=== PATIENT | male | born 2000 | race American Indian/Alaskan Native ===

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

== ENCOUNTER 2020-11-19 00:12 | Emergency (ER) | payer OTHER ==
[2020-11-19 00:27] VITALS: BP 134/81
[2020-11-19] MEDS ORDERED: ACETAMINOPHEN 325 MG TAB PO STA (00:33)
--- NOTE | 2020-11-19 01:19 | XRay Report ---
CHEST 2 VIEWS INDICATION / CLINICAL INFORMATION: fever chills. COMPARISON: None available. FINDINGS: SUPPORT DEVICES: None. HEART / MEDIASTINUM: No significant abnormality. LUNGS / PLEURA: No significant pulmonary or pleural abnormality. No pneumothorax. ADDITIONAL FINDINGS: No significant additional findings. IMPRESSION: 1. No acute findings. Signer Name: Rick Bansal MD Signed: 11/19/2020 1:15 AM Workstation Name: [id number]
[2020-11-19] MEDS ORDERED: SODIUM CHLORIDE 0.9% 1000 ML 1,000 ML IV ONE (01:22)
[2020-11-19 01:51] LABS: Basophils % (Auto) 0.4 % (0.0-1.8); Eosinophils # (Auto) 0.1 K/mm3 (0.0-0.4); Hematocrit 49.3 % (35.5-45.6); Hemoglobin 16.6 gm/dl (11.8-15.2); Lymphocytes # (Auto) 1.1 K/mm3 (1.2-5.4); Lymphocytes % (Auto) 18.2 % (13.4-35.0); Mean Corpuscular HGB Conc 34 % (32-34); Mean Corpuscular Volume 93 fl (84-94); Monocytes # (Auto) 0.9 K/mm3 (0.0-0.8); Monocytes % (Auto) 14.5 % (0.0-7.3); Platelet Count 216 K/mm3 (140-440); Red Blood Count 5.31 M/mm3 (3.65-5.03); Red Cell Distribution Width 12.6 % (13.2-15.2)
[2020-11-19 02:14] LABS: Alanine Aminotransferase 18 units/L (7-56); Albumin 4.2 g/dL (3.9-5); BUN/Creatinine Ratio 10; Blood Urea Nitrogen 10 mg/dL (9-20); Calcium 9.2 mg/dL (8.4-10.2); Hemolysis Index 13
[2020-11-19 03:10] LABS: Bilirubin,Urine NEG (Negative); Blood,Urine NEG (Negative); Color,Urine Yellow (Yellow); Mucus,Urine 3+ /HPF; Protein,Urine <15 mg/dL mg/dL (Negative); Urobilinogen,Urine < 2.0 mg/dL (<2.0); WBC,Urine < 1.0 /HPF (0.0-6.0)
--- NOTE | 2020-11-19 03:23 | Emergency Department Report ---
- General Chief Complaint: Fever Stated Complaint: FLU LIKE SYPMTOMS Time Seen by Provider: 11/19/20 01:21 Source: patient Mode of arrival: Ambulatory Limitations: No Limitations - History of Present Illness Initial Comments: This is a 20-year-old male nontoxic, well nourished in appearance, no acute signs of distress presents to the ED with c/o of productive cough, fever, chills , body aches, rhinorrhea, nausea, nasal congestion x1 day. Patient describes productive cough as yellow mucus production. Patient denies any sick contact. Patient stated just came from [place]. Patient denies any calf pain or calf tenderness. Patient denies any chest pain, short of breath, nausea, vomiting, hemoptysis, numbness, tingling, headache or stiff neck. Patient denies any allergies significant past medical history. MD Complaint: fever, cough, rhinorrhea, nasal congestion -: days(s) Severity: mild Severity scale (0 -10): 3 Quality: aching Consistency: constant Improves With: nothing Worsens With: nothing Associated Symptoms: fever, chills, rhinorrhea, nasal congestion, cough, nausea. denies: myalgias, diaphoresis, headache, sore throat, stiff neck, chest pain, shortness of breath, abdominal pain, vomiting, diarrhea, dysuria, rash, confusion, right sweats, weight loss, epistaxis, hoarseness, ear pain Treatments Prior to Arrival: none - Related Data Previous Rx's Medication Instructions Recorded Last Taken Type Cyclobenzaprine [Flexeril] 10 mg PO TID PRN #30 tablet 09/15/18 Unknown Rx Menthol/Camphor [[place] 1 applicatio TP QID PRN #1 tube 09/15/18 Unknown Rx Ointment] Naproxen 500 mg PO BID PRN #30 tablet 09/15/18 Unknown Rx Acetaminophen [Acetaminophen 8 650 mg PO Q8H PRN #12 tablet.er 11/19/20 Unknown Rx Hour] Benzonatate [Tessalon Perles] 100 mg PO Q8HR PRN #12 capsule 11/19/20 Unknown Rx Allergies Allergy/AdvReac Type Severity Reaction Status Date / Time Pork/Porcine Containing Allergy Rash Verified 11/19/20 00:23 Products turkey Allergy Rash Verified 11/19/20 00:23 beef Allergy Rash Uncoded 11/19/20 00:23 chicken Allergy Rash Uncoded 11/19/20 00:23 ED Review of Systems ROS: Stated complaint: FLU LIKE SYPMTOMS Other details as noted in HPI Comment: All other systems reviewed and negative Constitutional: chills, fever Eyes: denies: eye pain, eye discharge, vision change ENT: congestion. denies: ear pain, throat pain Respiratory: cough. denies: shortness of breath, wheezing Cardiovascular: denies: chest pain, palpitations Endocrine: no symptoms reported Gastrointestinal: nausea. denies: abdominal pain, vomiting, diarrhea, co nstipation, hematemesis, melena, hematochezia Genitourinary: denies: urgency, dysuria Musculoskeletal: denies: back pain, joint swelling, arthralgia Skin: denies: rash, lesions Neurological: denies: headache, weakness, paresthesias Psychiatric: denies: anxiety, depression Hematological/Lymphatic: denies: easy bleeding, easy bruising ED Past Medical Hx - Past Medical History Previous Medical History?: No - Surgical History Past Surgical History?: No - Social History Smoking Status: Never Smoker Substance Use Type: None - Medications Home Medications: Home Medications Medication Instructions Recorded Confirmed Last Taken Type Cyclobenzaprine [Flexeril] 10 mg PO TID PRN #30 tablet 09/15/18 Unknown Rx Menthol/Camphor [[place] 1 applicatio TP QID PRN #1 tube 09/15/18 Unknown Rx Ointment] Naproxen 500 mg PO BID PRN #30 tablet 09/15/18 Unknown Rx Acetaminophen [Acetaminophen 8 650 mg PO Q8H PRN #12 tablet.er 11/19/20 Unknown Rx Hour] Benzonatate [Tessalon Perles] 100 mg PO Q8HR PRN #12 capsule 11/19/20 Unknown Rx ED Physical Exam - General Limitations: No Limitations General appearance: alert, in no apparent distress - Head Head exam: Present: atraumatic, normocephalic - Eye Eye exam: Present: normal appearance - ENT ENT exam: Present: normal exam, normal orophraynx - Neck Neck exam: Present: normal inspection, full ROM. Absent: tenderness, meningismus, lymphadenopathy - Respiratory Respiratory exam: Present: normal lung sounds bilaterally. Absent: respiratory distress, wheezes, rales, rhonchi, stridor, chest wall tenderness, accessory muscle use, decreased breath sounds, prolonged expiratory - Cardiovascular Cardiovascular Exam: Present: regular rate, normal rhythm, tachycardia. Absent: irregular rhythm, systolic murmur, diastolic murmur, rubs, gallop - GI/Abdominal GI/Abdominal exam: Present: soft, normal bowel sounds. Absent: distended, tenderness, guarding, rebound, rigid, diminished bowel sounds - Extremities Exam Extremities exam: Present: normal inspection, full ROM - Back Exam Back exam: Present: normal inspection, full ROM. Absent: tenderness, CVA tenderness (R), CVA tenderness (L), muscle spasm, paraspinal tenderness, vertebral tenderness, rash noted - Neurological Exam Neurological exam: Present: alert, oriented X3, normal gait - Psychiatric Psychiatric exam: Present: normal affect, normal mood - Skin Skin exam: Present: warm, dry, intact, normal color. Absent: rash ED Course Vital Signs 11/19/20 11/19/20 11/19/20 00:25 01:27 02:36 Temperature 100.6 F H Pulse Rate 123 H Respiratory 20 20 20 Rate Blood Pressure 134/81 O2 Sat by Pulse 98 97 Oximetry 11/19/20 03:25 Temperature 98.6 F Pulse Rate 88 Respiratory 16 Rate Blood Pressure O2 Sat by Pulse 100 Oximetry - Reevaluation(s) Reevaluation #1: 11/19/20 03:22 Patient is speaking in full sentences with no signs of distress noted. ED Medical Decision Making - Lab Data Result diagrams: 11/19/20 01:26 11/19/20 01:26 Lab Results 11/19/20 11/19/20 11/19/20 Range/Units 01:26 01:26 01:26 WBC 6.1 (4.5-11.0) K/mm3 RBC 5.31 H (3.65-5.03) M/mm3 Hgb 16.6 H (11.8-15.2) gm/dl Hct 49.3 H (35.5-45.6) % MCV 93 (84-94) fl MCH 31 (28-32) pg MCHC 34 (32-34) % RDW 12.6 L (13.2-15.2) % Plt Count 216 (140-440) K/mm3 Lymph % (Auto) 18.2 (13.4-35.0) % [place] % (Auto) 14.5 H (0.0-7.3) % Eos % (Auto) 2.0 (0.0-4.3) % Baso % (Auto) 0.4 (0.0-1.8) % Lymph # (Auto) 1.1 L (1.2-5.4) K/mm3 [place] # (Auto) 0.9 H (0.0-0.8) K/mm3 Eos # (Auto) 0.1 (0.0-0.4) K/mm3 Baso # (Auto) 0.0 (0.0-0.1) K/mm3 Seg Neutrophils % 64.9 (40.0-70.0) % Seg Neutrophils # 3.9 (1.8-7.7) K/mm3 Sodium 136 L (137-145) mmol/L Potassium 3.7 (3.6-5.0) mmol/L Chloride 99.3 (98-107) mmol/L Carbon Dioxide 30 (22-30) mmol/L Anion Gap 10 mmol/L BUN 10 (9-20) mg/dL Creatinine 1.0 (0.8-1.3) mg/dL Estimated GFR > 60 ml/min BUN/Creatinine Ratio 10 % Glucose 119 H (75-100) mg/dL Lactic Acid 1.80 (0.7-2.0) mmol/L Calcium 9.2 (8.4-10.2) mg/dL Total Bilirubin 0.20 (0.1-1.2) mg/dL AST 16 (5-40) units/L ALT 18 (7-56) units/L Alkaline Phosphatase 83 (35-129) units/L Total Protein 7.1 (6.3-8.2) g/dL Albumin 4.2 (3.9-5) g/dL Albumin/Globulin Ratio 1.4 % Urine Color (Yellow) Urine Turbidity (Clear) Urine pH (5.0-7.0) Ur Specific [place] (1.003-1.030) Urine Protein (Negative) mg/dL Urine Glucose (UA) (Negative) mg/dL Urine Ketones (Negative) mg/dL Urine Blood (Negative) Urine Nitrite (Negative) Urine Bilirubin (Negative) Urine Urobilinogen (<2.0) mg/dL Ur Leukocyte Esterase (Negative) Urine WBC (Auto) (0.0-6.0) /HPF Urine RBC (Auto) (0.0-6.0) /HPF Urine Mucus /HPF 11/19/20 Range/Units 02:35 WBC (4.5-11.0) K/mm3 RBC (3.65-5.03) M/mm3 Hgb (11.8-15.2) gm/dl Hct (35.5-45.6) % MCV (84-94) fl MCH (28-32) pg MCHC (32-34) % RDW (13.2-15.2) % Plt Count (140-440) K/mm3 Lymph % (Auto) (13.4-35.0) % [place] % (Auto) (0.0-7.3) % Eos % (Auto) (0.0-4.3) % Baso % (Auto) (0.0-1.8) % Lymph # (Auto) (1.2-5.4) K/mm3 [place] # (Auto) (0.0-0.8) K/mm3 Eos # (Auto) (0.0-0.4) K/mm3 Baso # (Auto) (0.0-0.1) K/mm3 Seg Neutrophils % (40.0-70.0) % Seg Neutrophils # (1.8-7.7) K/mm3 Sodium (137-145) mmol/L Potassium (3.6-5.0) mmol/L Chloride (98-107) mmol/L Carbon Dioxide (22-30) mmol/L Anion Gap mmol/L BUN (9-20) mg/dL Creatinine (0.8-1.3) mg/dL Estimated GFR ml/min BUN/Creatinine Ratio % Glucose (75-100) mg/dL Lactic Acid (0.7-2.0) mmol/L Calcium (8.4-10.2) mg/dL Total Bilirubin (0.1-1.2) mg/dL AST (5-40) units/L ALT (7-56) units/L Alkaline Phosphatase (35-129) units/L Total Protein (6.3-8.2) g/dL Albumin (3.9-5) g/dL Albumin/Globulin Ratio % Urine Color Yellow (Yellow) Urine Turbidity Clear (Clear) Urine pH 5.0 (5.0-7.0) Ur Specific [place] 1.024 (1.003-1.030) Urine Protein <15 mg/dl (Negative) mg/dL Urine Glucose (UA) Neg (Negative) mg/dL Urine Ketones Neg (Negative) mg/dL Urine Blood Neg (Negative) Urine Nitrite Neg (Negative) Urine Bilirubin Neg (Negative) Urine Urobilinogen < 2.0 (<2.0) mg/dL Ur Leukocyte Esterase Neg (Negative) Urine WBC (Auto) < 1.0 (0.0-6.0) /HPF Urine RBC (Auto) 2.0 (0.0-6.0) /HPF Urine Mucus 3+ /HPF - Radiology Data [facility] [address] [place] [address] XRay Report Signed Patient: SARAH BELLA MR#: [id number] : 2000 Acct:[id number] Age/Sex: 20 / M ADM Date: 11/19/20 Loc: ED Attending Dr: Ordering Physician: NATALIE FERMIN MD Date of Service: 11/19/20 Procedure(s): XR chest routine 2V Accession Number(s): [id number] cc: NATALIE FERMIN MD Fluoro Time In Minutes: CHEST 2 VIEWS INDICATION / CLINICAL INFORMATION: fever chills. COMPARISON: None available. FINDINGS: SUPPORT DEVICES: None. HEART / MEDIASTINUM: No significant abnormality. LUNGS / PLEURA: No significant pulmonary or pleural abnormality. No pneu mothorax. ADDITIONAL FINDINGS: No significant additional findings. IMPRESSION: 1. No acute findings. Signer Name: Rick Bansal MD Signed: 11/19/2020 1:15 AM Workstation Name: [id number] Transcribed By: TL Dictated By: Rick Bansal MD Electronically Authenticated By: Rick Bansal MD Signed Date/Time: 11/19/20114 DD/ 4 TD/TT: - Medical Decision Making This is a 20-year-old male that presents with suspected Covid. Patient is stable and was examined by me. Chest x-ray has been obtained and dictated by radiologist with normal exam. Patient is notified of x-ray results with no questions noted. Patient does meet clinical concerns of COVID-19 and patient was instructed and educated on signs and symptoms and to self quarantine and seek medical attention as soon as possible if symptoms worsen and continue. Patient was instructed to increase hydration, rest and take Tylenol for fever episodes. Patient received resuscitation in the ED. Vitals stable prior to discharge. Patient is nonfebrile and normal heart rate. Patient was instructed Follow-up with a primary care doctor in 3-5 days or if symptoms worsen and continue return to emergency room as soon as possible. At time time of discharge, the patient does not seem toxic or ill in appearance. No acute signs of distress noted. Patient agrees to discharge treatment plan of care. No further questions noted by the patient.nt. Critical care attestation.: If time is entered above; I have spent that time in minutes in the direct care of this critically ill patient, excluding procedure time. ED Disposition Clinical Impression: Suspected COVID-19 virus infection Disposition: TO HOME OR SELFCARE Is pt being admited?: No Does the pt Need Aspirin: No Condition: Stable Instructions: COVID-19 Frequently Asked Questions, COVID-19 Additional Instructions: Follow-up with a primary care doctor in 3-5 days or if symptoms worsen and continue return to emergency room as soon as possible. As educated and instructed to you must self quarantine yourself and people that you have been in close contact with similar symptoms for the next 14 days. Please see your nearest health department or primary care doctor that you are referred to for COVID testing. Increased rest, hydration, and take Tylenol as prescribed for fever episode. Prescriptions: Acetaminophen [Acetaminophen 8 Hour] 650 mg PO Q8H PRN #12 tablet.er PRN Reason: Fever >101 Benzonatate [Tessalon Perles] 100 mg PO Q8HR PRN #12 capsule PRN Reason: Cough Referrals: SILAS SANDRA MD [Primary Care Provider] - 3-5 Days BERNIE SHARPE MD [Staff Physician] - 3-5 Days Time of Disposition: 03:36
== END 2020-11-19 04:31 | disposition home or self-care (01) ==
LOC: ED 00:12
DX: J34.89 Other specified disorders of nose and nasal sinuses (principal); R05 Cough; R50.9 Fever, unspecified; R09.81 Nasal congestion; R52 Pain, unspecified; Z79.899 Other long term (current) drug therapy; Z20.822 Contact with and (suspected) exposure to COVID-19; Z91.018 Allergy to other foods
CPT/HCPCS: 36415; 71046; 80053; 81001; 82140; 85025; 87040; 96360; 99284; J7030

== ENCOUNTER 2021-03-13 07:12 | Emergency (ER) | payer OTHER ==
[2021-03-13] MEDS ORDERED: ONDANSETRON 4 MG ODT TAB PO ONE (08:13)
[2021-03-13] MEDS ORDERED: ACETAMINOPHEN 500 MG TAB PO STA (08:13)
--- NOTE | 2021-03-13 08:42 | XRay Report ---
CHEST 2 VIEWS INDICATION / CLINICAL INFORMATION: cough, fever. COMPARISON: 11/19/2020 FINDINGS: SUPPORT DEVICES: None. HEART / MEDIASTINUM: No significant abnormality. LUNGS / PLEURA: No significant pulmonary or pleural abnormality. No pneumothorax. ADDITIONAL FINDINGS: No significant additional findings. IMPRESSION: 1. No acute findings. Signer Name: Aaron Lynn MD Signed: 03/13/2021 8:38 AM Workstation Name: [id number]
[2021-03-13 08:46] LABS: Basophils % (Auto) 0.1 % (0.0-1.8); Eosinophils % (Auto) 0.1 % (0.0-4.3); Hematocrit 46.6 % (35.5-45.6); Hemoglobin 15.9 gm/dl (11.8-15.2); Lymphocytes % (Auto) 7.8 % (13.4-35.0); Mean Corpuscular HGB Conc 34 % (32-34); Mean Corpuscular Volume 91 fl (84-94); Monocytes # (Auto) 1.4 K/mm3 (0.0-0.8); Monocytes % (Auto) 10.3 % (0.0-7.3); Platelet Count 170 K/mm3 (140-440); Red Blood Count 5.14 M/mm3 (3.65-5.03); Red Cell Distribution Width 12.4 % (13.2-15.2)
[2021-03-13 09:05] LABS: Alanine Aminotransferase 22 units/L (7-56); Albumin 4.6 g/dL (3.9-5); BUN/Creatinine Ratio 8; Blood Urea Nitrogen 10 mg/dL (9-20); Calcium 9.3 mg/dL (8.4-10.2); Hemolysis Index 7
--- NOTE | 2021-03-13 09:53 | Emergency Department Report ---
<ARPIT PERRY - Last Filed: 03/15/21 06:24> ED General Adult HPI - General Chief complaint: Fever Stated complaint: CHEST PAIN Time Seen by Provider: 03/13/21 09:09 Source: patient Mode of arrival: Ambulatory Limitations: No Limitations - History of Present Illness Initial comments: 20-year-old -[place] male patient without past medical history presents with complaints of cough, body aches, headache, chills, and sore throat x2 days. He admits to a loss of taste and decreased male. He denies any known sick contacts, chest pain or shortness of breath. He does admit to one episode of vomiting and mild abdominal pain without diarrhea or urinary symptoms. Patient rates his current pain as a 6/10 in severity. He denies trying any OTC medications for his symptoms. Severity scale (0 -10): 6 - Related Data Previous Rx's Medication Instructions Recorded Last Taken Type Cyclobenzaprine [Flexeril] 10 mg PO TID PRN #30 tablet 09/15/18 Unknown Rx Menthol/Camphor [[place] 1 applicatio TP QID PRN #1 tube 09/15/18 Unknown Rx Ointment] Naproxen 500 mg PO BID PRN #30 tablet 09/15/18 Unknown Rx Acetaminophen [Acetaminophen 8 650 mg PO Q8H PRN #12 tablet.er 11/19/20 Unknown Rx Hour] Amoxicillin [Trimox CAP] 500 mg PO BID 10 Days #20 capsule 03/13/21 Unknown Rx Ibuprofen [Motrin 800 MG tab] 800 mg PO Q8HR PRN #21 tablet 03/13/21 Unknown Rx Ascorbic Acid [Vitamin C] 1,000 mg PO Q12H #60 tablet 03/16/21 Unknown Rx Azithromycin [Zithromax Z-ADI] 250 mg PO DAILY #6 tablet 03/16/21 Unknown Rx Benzonatate [Tessalon Perles] 100 mg PO Q8HR PRN #30 capsule 03/16/21 Unknown Rx Cetirizine HCl [Zyrtec 10mg tab] 10 mg PO DAILY #30 tablet 03/16/21 Unknown Rx Famotidine [Pepcid] 20 mg PO BID #30 tablet 03/16/21 Unknown Rx Ondansetron [Zofran Odt] 4 mg PO Q6HR PRN #20 tab.rapdis 03/16/21 Unknown Rx Prednisone [predniSONE 10 mg 10 mg PO .TAPER #21 tab.ds.pk 03/16/21 Unknown Rx (6-Day Pack, 21 Tabs)] Zinc [Zinc 50mg TAB] 50 mg PO DAILY #30 tablet 03/16/21 Unknown Rx Allergies Allergy/AdvReac Type Severity Reaction Status Date / Time Pork/Porcine Containing Allergy Rash Verified 11/19/20 00:23 Products turkey Allergy Rash Verified 11/19/20 00:23 beef Allergy Rash Uncoded 11/19/20 00:23 chicken Allergy Rash Uncoded 11/19/20 00:23 ED Review of Systems Constitutional: chills, malaise, weakness. denies: diaphoresis ENT: throat pain Respiratory: cough. denies: shortness of breath Cardiovascular: denies: chest pain Gastrointestinal: as per HPI Neurological: headache. denies: numbness, paresthesias, abnormal gait ED Past Medical Hx - Past Medical History Previous Medical History?: No - Surgical History Past Surgical History?: No - Social History Smoking Status: Never Smoker Substance Use Type: None - Medications Home Medications: Home Medications Medication Instructions Recorded Confirmed Last Taken Type Cyclobenzaprine [Flexeril] 10 mg PO TID PRN #30 tablet 09/15/18 Unknown Rx Menthol/Camphor [[place] 1 applicatio TP QID PRN #1 tube 09/15/18 Unknown Rx Ointment] Naproxen 500 mg PO BID PRN #30 tablet 09/15/18 Unknown Rx Acetaminophen [Acetaminophen 8 650 mg PO Q8H PRN #12 tablet.er 11/19/20 Unknown Rx Hour] Amoxicillin [Trimox CAP] 500 mg PO BID 10 Days #20 capsule 03/13/21 Unknown Rx Ibuprofen [Motrin 800 MG tab] 800 mg PO Q8HR PRN #21 tablet 03/13/21 Unknown Rx Ascorbic Acid [Vitamin C] 1,000 mg PO Q12H #60 tablet 03/16/21 Unknown Rx Azithromycin [Zithromax Z-ADI] 250 mg PO DAILY #6 tablet 03/16/21 Unknown Rx Benzonatate [Tessalon Perles] 100 mg PO Q8HR PRN #30 capsule 03/16/21 Unknown Rx Cetirizine HCl [Zyrtec 10mg tab] 10 mg PO DAILY #30 tablet 03/16/21 Unknown Rx Famotidine [Pepcid] 20 mg PO BID #30 tablet 03/16/21 Unknown Rx Ondansetron [Zofran Odt] 4 mg PO Q6HR PRN #20 tab.rapdis 03/16/21 Unknown Rx Prednisone [predniSONE 10 mg 10 mg PO .TAPER #21 tab.ds.pk 03/16/21 Unknown Rx (6-Day Pack, 21 Tabs)] Zinc [Zinc 50mg TAB] 50 mg PO DAILY #30 tablet 03/16/21 Unknown Rx ED Physical Exam - General Limitations: No Limitations General appearance: alert, in no apparent distress - Head Head exam: Present: atraumatic, normocephalic, normal inspection - Eye Eye exam: Present: normal appearance. Absent: scleral icterus - Expanded ENT Exam Expanded Throat exam: Positive: tonsillar erythema, tonsillomegaly (Mild bilateral), tonsillar exudate (Right sided) - Neck Neck exam: Present: normal inspection, full ROM. Absent: lymphadenopathy - Respiratory Respiratory exam: Present: normal lung sounds bilaterally. Absent: respiratory distress - Cardiovascular Cardiovascular Exam: Present: tachycardia (Mild) - GI/Abdominal GI/Abdominal exam: Present: soft, normal bowel sounds. Absent: distended, tenderness, guarding, rebound, rigid - Neurological Exam Neurological exam: Present: alert, oriented X3 - Psychiatric Psychiatric exam: Present: normal affect, normal mood - Skin Skin exam: Present: warm, dry, intact, normal color. Absent: rash, cyanosis, diaphoretic, ecchymosis ED Medical Decision Making - Lab Data Result diagrams: 03/13/21 08:23 03/13/21 08:23 Lab Results 03/13/21 03/13/21 03/13/21 Range/Units 08:23 08:23 09:09 WBC 13.2 H (4.5-11.0) K/mm3 RBC 5.14 H (3.65-5.03) M/mm3 Hgb 15.9 H (11.8-15.2) gm/dl Hct 46.6 H (35.5-45.6) % MCV 91 (84-94) fl MCH 31 (28-32) pg MCHC 34 (32-34) % RDW 12.4 L (13.2-15.2) % Plt Count 170 (140-440) K/mm3 Lymph % (Auto) 7.8 L (13.4-35.0) % [place] % (Auto) 10.3 H (0.0-7.3) % Eos % (Auto) 0.1 (0.0-4.3) % Baso % (Auto) 0.1 (0.0-1.8) % Lymph # (Auto) 1.0 L (1.2-5.4) K/mm3 [place] # (Auto) 1.4 H (0.0-0.8) K/mm3 Eos # (Auto) 0.0 (0.0-0.4) K/mm3 Baso # (Auto) 0.0 (0.0-0.1) K/mm3 Seg Neutrophils % 81.7 H (40.0-70.0) % Seg Neutrophils # 10.8 H (1.8-7.7) K/mm3 Sodium 137 (137-145) mmol/L Potassium 4.0 (3.6-5.0) mmol/L Chloride 98.5 (98-107) mmol/L Carbon Dioxide 29 (22-30) mmol/L Anion Gap 14 mmol/L BUN 10 (9-20) mg/dL Creatinine 1.2 (0.8-1.3) mg/dL Estimated GFR > 60 ml/min BUN/Creatinine Ratio 8 % Glucose 117 H (75-100) mg/dL Lactic Acid 0.80 (0.7-2.0) mmol/L Calcium 9.3 (8.4-10.2) mg/dL Total Bilirubin 0.50 (0.1-1.2) mg/dL AST 19 (5-40) units/L ALT 22 (7-56) units/L Alkaline Phosphatase 66 (35-129) units/L Total Protein 7.6 (6.3-8.2) g/dL Albumin 4.6 (3.9-5) g/dL Albumin/Globulin Ratio 1.5 % - Radiology Data Radiology results: report reviewed CHEST 2 VIEWS INDICATION / CLINICAL INFORMATION: cough, fever. COMPARISON: 11/19/2020 FINDINGS: SUPPORT DEVICES: None. HEART / MEDIASTINUM: No significant abnormality. LUNGS / PLEURA: No significant pulmonary or pleural abnormality. No pneumothorax. ADDITIONAL FINDINGS: No significant additional findings. IMPRESSION: 1. No acute findings. - Medical Decision Making 20-year-old -[place] male patient without past medical history presents with complaints of cough, body aches, headache, chills, and sore throat x2 days. He admits to a loss of taste and decreased male. He denies any known sick contacts, chest pain or shortness of breath. He does admit to one episode of vomiting and mild abdominal pain without diarrhea or urinary symptoms. Patient rates his current pain as a 6/10 in severity. He denies trying any OTC medications for his symptoms. Fever of 101.4 and heart rate of 107 noted upon arrival. Lung exam is clear. Patient noted to have pharyngitis on exam. Given Covid symptoms with cough, chest x-ray is performed and is negative for any acute abnormalities. Will treat for acute bacterial pharyngitis with Amoxil. Patient advised to receive COVID-19 testing within the next 24 to 48 hours and self quarantine until his results are back. He is to follow-up with his primary care provider. After ibuprofen and Tylenol he is now afebrile and nontachycardic. He states he is feeling well. Patient is stable for discharge home. Discussed signs and symptoms that should prompt immediate return to the emergency department in detail with patient who verbalizes understanding. ED Disposition Clinical Impression: Suspected COVID-19 virus infection, Pharyngitis Disposition: DC-01 TO HOME OR SELFCARE Is pt being admited?: No Condition: Good Instructions: COVID-19, Strep Throat, Adult, Prevent the Spread of COVID-19 if You Are Sick - [facility] Prescriptions: Ibuprofen [Motrin 800 MG tab] 800 mg PO Q8HR PRN #21 tablet PRN Reason: pain/fever Amoxicillin [Trimox CAP] 500 mg PO BID 10 Days #20 capsule Referrals: [facility] [Provider Group] - 3-5 Days <NATALIE FERMIN - Last Filed: 03/17/21 11:48> ED General Adult HPI - General PUI?: Yes ED Review of Systems ROS: Stated complaint: CHEST PAIN Other details as noted in HPI ED Course Vital Signs 03/13/21 03/13/21 03/13/21 07:37 08:54 10:13 Temperature 101.4 F H 99.2 F Pulse Rate 107 H 98 H Respiratory 18 16 16 Rate Blood Pressure 116/71 Blood Pressure 106/63 [Left] O2 Sat by Pulse 96 99 Oximetry ED Medical Decision Making - Lab Data Result diagrams: 03/13/21 08:23 03/13/21 08:23 Critical care attestation.: If time is entered above; I have spent that time in minutes in the direct care of this critically ill patient, excluding procedure time. ED Disposition Is pt being admited?: No Does the pt Need Aspirin: No
[2021-03-13 10:14] VITALS: BP 106/63
== END 2021-03-13 10:20 | disposition home or self-care (01) ==
LOC: ED 07:12
DX: J02.9 Acute pharyngitis, unspecified (principal); Z20.822 Contact with and (suspected) exposure to COVID-19; Z79.1 Long term (current) use of non-steroidal anti-inflammatories (NSAID); Z79.2 Long term (current) use of antibiotics; Z79.899 Other long term (current) drug therapy; Z91.018 Allergy to other foods
CPT/HCPCS: 36415; 71046; 80053; 82140; 85025; Q0162

== ENCOUNTER 2021-03-16 02:32 | Emergency (ER) | payer OTHER ==
[2021-03-16] MEDS ORDERED: ONDANSETRON 4 MG/2 ML INJ IV ONE (02:46)
[2021-03-16] MEDS ORDERED: methylPREDNISolone Sod Succinate 125 MG/2 ML INJ IV ONE (02:46)
[2021-03-16] MEDS ORDERED: ACETAMINOPHEN 500 MG TAB PO ONE (02:46)
[2021-03-16] MEDS ORDERED: SODIUM CHLORIDE 0.9% 1000 ML 1,000 ML IV ONE (02:46)
--- NOTE | 2021-03-16 04:16 | Emergency Department Report ---
ED N/V/D HPI - General Chief complaint: Nausea/Vomiting/Diarrhea Stated complaint: COVID POS/SONI/DIARRHEA Source: patient Mode of arrival: Ambulatory Limitations: No Limitations - History of Present Illness Initial comments: Patient is a 20-year-old -[place] male with no past medical history presents to the ED with complaint of acute onset persistent diffuse body aches and pains, fever and chills, persistent dry cough, nausea and vomiting, diarrhea, epigastric abdominal pain, lack of appetite and generalized weakness for the last 4 days. Patient states that he was initially evaluated in this ED 4 days ago and diagnosed with streptococcal pharyngitis and COVID-19 viral infection, and is currently on oral antibiotics and [id number] pain medications for symptomatic treatment of the viral syndrome with COVID-19. Patient states that in the last 12 hours, his symptoms have worsened and that he has not been able to keep anything down because of nausea and vomiting and diarrhea. Patient denies dizziness, syncope, loss of consciousness, headache, chest pain, shortness of breath, sore throat, back pain, dysuria, urinary frequency and urgency and testicular pain or hematuria. MD complaint: nausea, vomiting, diarrhea, abdominal pain, other (Fever, chills, persistent dry cough) -: Sudden, days(s) (4) Description of Vomiting: food contents Description of Diarrhea: water Associated Abdominal Pain: Yes (Epigastric pain) Location: epigastric Radiation: none Severity: severe Pain Scale: 7 Quality: aching, sharp Consistency: constant Improves with: none Worsens with: vomiting Context: other (Viral syndrome suspected to be COVID-19) Associated Symptoms: denies other symptoms, myalgias, cough, fever/chills, headaches, loss of appetite, malaise, nausea/vomiting, weakness. denies: chest pain, diaphoresis, rash, dysuria, shortness of breath, syncope - Related Data Previous Rx's Medication Instructions Recorded Last Taken Type Cyclobenzaprine [Flexeril] 10 mg PO TID PRN #30 tablet 09/15/18 Unknown Rx Menthol/Camphor [[place] 1 applicatio TP QID PRN #1 tube 09/15/18 Unknown Rx Ointment] Naproxen 500 mg PO BID PRN #30 tablet 09/15/18 Unknown Rx Acetaminophen [Acetaminophen 8 650 mg PO Q8H PRN #12 tablet.er 11/19/20 Unknown Rx Hour] Amoxicillin [Trimox CAP] 500 mg PO BID 10 Days #20 capsule 03/13/21 Unknown Rx Ibuprofen [Motrin 800 MG tab] 800 mg PO Q8HR PRN #21 tablet 03/13/21 Unknown Rx Ascorbic Acid [Vitamin C] 1,000 mg PO Q12H #60 tablet 03/16/21 Unknown Rx Azithromycin [Zithromax Z-ADI] 250 mg PO DAILY #6 tablet 03/16/21 Unknown Rx Benzonatate [Tessalon Perles] 100 mg PO Q8HR PRN #30 capsule 03/16/21 Unknown Rx Cetirizine HCl [Zyrtec 10mg tab] 10 mg PO DAILY #30 tablet 03/16/21 Unknown Rx Famotidine [Pepcid] 20 mg PO BID #30 tablet 03/16/21 Unknown Rx Ondansetron [Zofran Odt] 4 mg PO Q6HR PRN #20 tab.rapdis 03/16/21 Unknown Rx Prednisone [predniSONE 10 mg 10 mg PO .TAPER #21 tab.ds.pk 03/16/21 Unknown Rx (6-Day Pack, 21 Tabs)] Zinc [Zinc 50mg TAB] 50 mg PO DAILY #30 tablet 03/16/21 Unknown Rx Allergies Allergy/AdvReac Type Severity Reaction Status Date / Time Pork/Porcine Containing Allergy Rash Verified 11/19/20 00:23 Products turkey Allergy Rash Verified 11/19/20 00:23 beef Allergy Rash Uncoded 11/19/20 00:23 chicken Allergy Rash Uncoded 11/19/20 00:23 ED Review of Systems ROS: Stated complaint: COVID POS/SONI/DIARRHEA Other details as noted in HPI Constitutional: chills, fever, malaise, weakness Eyes: denies: eye pain, eye discharge, vision change ENT: throat pain, congestion. denies: ear pain Respiratory: cough. denies: shortness of breath, wheezing Cardiovascular: denies: chest pain, palpitations Endocrine: no symptoms reported Gastrointestinal: abdominal pain, nausea, vomiting, diarrhea Genitourinary: denies: urgency, dysuria Musculoskeletal: arthralgia, myalgia. denies: back pain, joint swelling Skin: denies: rash, lesions Neurological: headache. denies: weakness, paresthesias Psychiatric: denies: anxiety, depression Hematological/Lymphatic: denies: easy bleeding, easy bruising ED Past Medical Hx - Past Medical History Previous Medical History?: No - Surgical History Past Surgical History?: No - Social History Smoking Status: Never Smoker Substance Use Type: None - Medications Home Medications: Home Medications Medication Instructions Recorded Confirmed Last Taken Type Cyclobenzaprine [Flexeril] 10 mg PO TID PRN #30 tablet 09/15/18 Unknown Rx Menthol/Camphor [[place] 1 applicatio TP QID PRN #1 tube 09/15/18 Unknown Rx Ointment] Naproxen 500 mg PO BID PRN #30 tablet 09/15/18 Unknown Rx Acetaminophen [Acetaminophen 8 650 mg PO Q8H PRN #12 tablet.er 11/19/20 Unknown Rx Hour] Amoxicillin [Trimox CAP] 500 mg PO BID 10 Days #20 capsule 03/13/21 Unknown Rx Ibuprofen [Motrin 800 MG tab] 800 mg PO Q8HR PRN #21 tablet 03/13/21 Unknown Rx Ascorbic Acid [Vitamin C] 1,000 mg PO Q12H #60 tablet 03/16/21 Unknown Rx Azithromycin [Zithromax Z-ADI] 250 mg PO DAILY #6 tablet 03/16/21 Unknown Rx Benzonatate [Tessalon Perles] 100 mg PO Q8HR PRN #30 capsule 03/16/21 Unknown Rx Cetirizine HCl [Zyrtec 10mg tab] 10 mg PO DAILY #30 tablet 03/16/21 Unknown Rx Famotidine [Pepcid] 20 mg PO BID #30 tablet 03/16/21 Unknown Rx Ondansetron [Zofran Odt] 4 mg PO Q6HR PRN #20 tab.rapdis 03/16/21 Unknown Rx Prednisone [predniSONE 10 mg 10 mg PO .TAPER #21 tab.ds.pk 03/16/21 Unknown Rx (6-Day Pack, 21 Tabs)] Zinc [Zinc 50mg TAB] 50 mg PO DAILY #30 tablet 03/16/21 Unknown Rx ED Physical Exam - General Limitations: No Limitations General appearance: alert, in no apparent distress - Head Head exam: Present: atraumatic, normocephalic, normal inspection - Eye Eye exam: Present: normal appearance, PERRL, EOMI Pupils: Present: normal accommodation - ENT ENT exam: Present: normal exam, normal orophraynx, mucous membranes moist, TM's normal bilaterally, normal external ear exam - Neck Neck exam: Present: normal inspection, full ROM - Respiratory Respiratory exam: Present: normal lung sounds bilaterally. Absent: respiratory distress, wheezes, rales, rhonchi, stridor, chest wall tenderness, accessory muscle use, decreased breath sounds - Cardiovascular Cardiovascular Exam: Present: regular rate, normal rhythm, normal heart sounds. Absent: systolic murmur, diastolic murmur, rubs, gallop - GI/Abdominal GI/Abdominal exam: Present: soft, normal bowel sounds. Absent: tenderness, guarding, rebound, hyperactive bowel sounds, hypoactive bowel sounds, organomegaly - Extremities Exam Extremities exam: Present: normal inspection, full ROM, normal capillary refill - Back Exam Back exam: Present: normal inspection, full ROM. Absent: tenderness, CVA tenderness (R), CVA tenderness (L), muscle spasm, paraspinal tenderness, vertebral tenderness - Neurological Exam Neurological exam: Present: alert, oriented X3, CN II-XII intact, normal gait, reflexes normal - Psychiatric Psychiatric exam: Present: normal affect, normal mood, anxious - Skin Skin exam: Present: warm, dry, intact, normal color. Absent: rash ED Course Vital Signs 03/16/21 03/16/21 02:44 06:17 Temperature 100.5 F H 99.0 F Pulse Rate 93 H 97 H Respiratory 22 20 Rate Blood Pressure 117/63 Blood Pressure 109/63 [Right] O2 Sat by Pulse 97 96 Oximetry ED Medical Decision Making - Lab Data Result diagrams: 03/16/21 04:27 03/16/21 04:27 - Radiology Data [facility] [address] [place] [address] XRay Report Signed Patient: SARAH BELLA MR#: [id number] : 2000 Acct:[id number] Age/Sex: 20 / M ADM Date: 03/16/21 Loc: ED Attending Dr: Ordering Physician: OBINNA MORILLO Date of Service: 03/16/21 Procedure(s): XR chest 1V ap Accession Number(s): [id number] cc: OBINNA MORILLO Fluoro Time In Minutes: CHEST 1 VIEW 03/16/2021 4:18 AM INDICATION / CLINICAL INFORMATION: fever, cough. COMPARISON: None available. FINDINGS: SUPPORT DEVICES: None. HEART / MEDIASTINUM: No significant abnormality. LUNGS / PLEURA: There is minimal patchy airspace opacity in the lower lung zones. No pneumothorax. ADDITIONAL FINDINGS: No significant additional findings. IMPRESSION: 1. There is minimal patchy airspace opacity in the lower lung zones which could represent atelectasis or evolving pneumonia Signer Name: Jorje Kan MD Signed: 03/16/2021 5:32 AM Workstation Name: [id number] Transcribed By: SS Dictated By: Jorje Kan MD Electronically Authenticated By: Jorje Kan MD Signed Date/Time: 03/16/21531 DD/ 1 TD/TT: - Medical Decision Making This is a 20-year-old -[place] male with no past medical history presents to the ED with complaint of acute onset persistent diffuse body aches and pains, fever and chills, persistent dry cough, nausea and vomiting, diarrhea, epigastric abdominal pain, lack of appetite and generalized weakness for the last 4 days. Patient states that he was initially evaluated in this ED 4 days ago and diagnosed with streptococcal pharyngitis and COVID-19 viral infection, and is currently on oral antibiotics and [id number] pain medications for symptomatic treatment of the viral syndrome with COVID-19. Patient states that in the last 12 hours, his symptoms have worsened and that he has not been able to keep anything down because of nausea and vomiting and jackson rrhea. In the ED, patient is alert and oriented x3 and is not in any distress but appears to be in pain, is febrile and anxious in triage. Patient was treated in the ED for nausea and vomiting, also given normal saline 1 L IV bolus x1 as well as antiemetics and antacids. Lab test results reviewed and are all nonactionable. Chest x-ray showed minimal patchy airspace opacity in the lower lung zones which could represent atelectasis or evolving pneumonia which given the patient's history of recent diagnosis of COVID-19 viral infection, could represent pneumonia due to COVID-19 viral infection. On reevaluation, patient felt better, vital signs were reviewed and are all stable. Patient will discharge home on medications and advised to follow-up with his primary care physician once his self quarantine time is completed or return to the ED immediately if symptoms get worse. - Differential Diagnosis Pneumonia; bronchitis; URI; dehydration; COVID-19 Critical care attestation.: If time is entered above; I have spent that time in minutes in the direct care of this critically ill patient, excluding procedure time. ED Disposition Clinical Impression: Acute bronchitis due to 2019 novel coronavirus, Nausea, vomiting and diarrhea, Fever and chills, Pneumonia due to severe acute respiratory syndrome coronavirus 2 (SARS-CoV-2) Acute pharyngitis, unspecified Qualifiers: Pharyngitis/tonsillitis etiology: other specified organisms Qualified Code(s): J02.8 - Acute pharyngitis due to other specified organisms Disposition: - TO HOME OR SELFCARE Is pt being admited?: No Does the pt Need Aspirin: No Condition: Stable Instructions: COVID-19 Frequently Asked Questions, Viral Respiratory Infection, [id number]-[id number], Nausea and Vomiting, Adult, [id number], Acute Bronchitis, Adult, [id number], Pharyngitis, [id number]-aa-[id number], Diarrhea, Adult, Omyx-yl-Aycy, Prevent the Spread of COVID-19 if You Are Sick - CDC, Acute Bronchitis (ED), Bacterial Pneumonia (ED) Additional Instructions: All lab test results were reviewed and are all nonactionable. Chest x-ray shows is minimal patchy airspace opacity in the lower lung zones which could represent atelectasis or evolving pneumonia which given recent diagnosis of positive test for COVID-19 viral infection, could represent viral pneumonia due to COVID-19. Therefore take medications with food, drink plenty of fluids, self quarantine for 10 days and follow-up with your primary care physician thereafter. Return to the ED immediately if symptoms get worse. Prescriptions: Famotidine [Pepcid] 20 mg PO BID #30 tablet Prednisone [predniSONE 10 mg (6-Day Pack, 21 Tabs)] 10 mg PO .TAPER #21 tab .ds.pk Benzonatate [Tessalon Perles] 100 mg PO Q8HR PRN #30 capsule PRN Reason: Cough Ascorbic Acid [Vitamin C] 1,000 mg PO Q12H #60 tablet Zinc [Zinc 50mg TAB] 50 mg PO DAILY #30 tablet Azithromycin [Zithromax Z-ADI] 250 mg PO DAILY #6 tablet Ondansetron [Zofran Odt] 4 mg PO Q6HR PRN #20 tab.rapdis PRN Reason: Nausea Cetirizine HCl [Zyrtec 10mg tab] 10 mg PO DAILY #30 tablet Referrals: [facility] [Provider Group] - 7-10 days Forms: Work/School Release Form(ED) Time of Disposition: 04:17 Print Language: SWEDISH
--- NOTE | 2021-03-16 05:37 | XRay Report ---
CHEST 1 VIEW 03/16/2021 4:18 AM INDICATION / CLINICAL INFORMATION: fever, cough. COMPARISON: None available. FINDINGS: SUPPORT DEVICES: None. HEART / MEDIASTINUM: No significant abnormality. LUNGS / PLEURA: There is minimal patchy airspace opacity in the lower lung zones. No pneumothorax. ADDITIONAL FINDINGS: No significant additional findings. IMPRESSION: 1. There is minimal patchy airspace opacity in the lower lung zones which could represent atelectasis or evolving pneumonia Signer Name: Jorje Kan MD Signed: 03/16/2021 5:32 AM Workstation Name: [id number]
[2021-03-16 05:47] LABS: Basophils % (Auto) 0.2 % (0.0-1.8); Eosinophils % (Auto) 0.1 % (0.0-4.3); Hematocrit 44.6 % (35.5-45.6); Hemoglobin 15.2 gm/dl (11.8-15.2); Lymphocytes # (Auto) 0.5 K/mm3 (1.2-5.4); Lymphocytes % (Auto) 10.4 % (13.4-35.0); Mean Corpuscular HGB Conc 34 % (32-34); Mean Corpuscular Volume 92 fl (84-94); Monocytes # (Auto) 0.5 K/mm3 (0.0-0.8); Monocytes % (Auto) 11.6 % (0.0-7.3); Platelet Count 172 K/mm3 (140-440); Red Blood Count 4.85 M/mm3 (3.65-5.03); Red Cell Distribution Width 12.3 % (13.2-15.2)
[2021-03-16 06:08] LABS: Alanine Aminotransferase 16 units/L (7-56); Albumin 4.4 g/dL (3.9-5); BUN/Creatinine Ratio 10; Blood Urea Nitrogen 11 mg/dL (9-20); Calcium 8.8 mg/dL (8.4-10.2); Hemolysis Index 3
[2021-03-16 06:23] VITALS: BP 117/63
== END 2021-03-16 07:36 | disposition home or self-care (01) ==
LOC: ED 02:32
DX: U07.1 COVID-19 (principal); J12.81 Pneumonia due to SARS-associated coronavirus; J20.8 Acute bronchitis due to other specified organisms; R11.2 Nausea with vomiting, unspecified; R19.7 Diarrhea, unspecified; R50.9 Fever, unspecified; R53.81 Other malaise; R53.1 Weakness; H83.8X9 Other specified diseases of inner ear, unspecified ear; R05 Cough; R10.9 Unspecified abdominal pain; J02.9 Acute pharyngitis, unspecified; R51.9 Headache, unspecified; Z91.018 Allergy to other foods
CPT/HCPCS: 36415; 71045; 80053; 85025; 96361; 96374; 96375; 99284; J2405; J2930; J7030

== ENCOUNTER 2021-03-20 08:36 | Inpatient (IN) | payer OTHER ==
[2021-03-20] MEDS ORDERED: AZITHROMYCIN/NS 500 MG/250 ML 500 MG/250 ML BAG IV ONE (10:17)
[2021-03-20] MEDS ORDERED: ONDANSETRON 4 MG/2 ML INJ IV ONE (10:17)
[2021-03-20] MEDS ORDERED: DEXAMETHASONE 4 MG TAB PO ONE (10:17)
[2021-03-20] MEDS ORDERED: cefTRIAXone/NS 1 GM/50 ML 1 GM/50 ML BAG IV ONE (10:17)
--- NOTE | 2021-03-20 10:28 | Emergency Department Report ---
ED Shortness of Breath HPI - General Chief Complaint: Dyspnea/Respdistress Stated Complaint: SOB Time Seen by Provider: 03/20/21 10:03 Source: patient, EMS Mode of arrival: Stretcher Limitations: No Limitations - History of Present Illness Initial Comments: 20-year-old male, no past medical history, presents to ED with difficulty breathing. Patient was diagnosed with COVID-19 1 week ago. He reports fever, cough, shortness of breath, diarrhea, loss of smell and taste. Patient has been seen in this ED 2 times previously and given prescriptions for amoxicillin, Tessalon Perles, vitamin C, zinc, azithromycin, and prednisone. Patient returns today due to worsening shortness of breath. Patient has not received his COVID- 19 vaccine. MD Complaint: shortness of breath -: week(s) (1) Severity: severe Consistency: constant Improves With: rest Worsens With: exertion Context: recent URI Associated Symptoms: fever, cough - Related Data Home Oxygen Therapy: No Previous Rx's Medication Instructions Recorded Last Taken Type Cyclobenzaprine [Flexeril] 10 mg PO TID PRN #30 tablet 09/15/18 Unknown Rx Menthol/Camphor [[place] 1 applicatio TP QID PRN #1 tube 09/15/18 Unknown Rx Ointment] Naproxen 500 mg PO BID PRN #30 tablet 09/15/18 Unknown Rx Acetaminophen [Acetaminophen 8 650 mg PO Q8H PRN #12 tablet.er 11/19/20 Unknown Rx Hour] Amoxicillin [Trimox CAP] 500 mg PO BID 10 Days #20 capsule 03/13/21 Unknown Rx Ibuprofen [Motrin 800 MG tab] 800 mg PO Q8HR PRN #21 tablet 03/13/21 Unknown Rx Ascorbic Acid [Vitamin C] 1,000 mg PO Q12H #60 tablet 03/16/21 Unknown Rx Azithromycin [Zithromax Z-ADI] 250 mg PO DAILY #6 tablet 03/16/21 Unknown Rx Benzonatate [Tessalon Perles] 100 mg PO Q8HR PRN #30 capsule 03/16/21 Unknown Rx Cetirizine HCl [Zyrtec 10mg tab] 10 mg PO DAILY #30 tablet 03/16/21 Unknown Rx Famotidine [Pepcid] 20 mg PO BID #30 tablet 03/16/21 Unknown Rx Ondansetron [Zofran Odt] 4 mg PO Q6HR PRN #20 tab.rapdis 03/16/21 Unknown Rx Prednisone [predniSONE 10 mg 10 mg PO .TAPER #21 tab.ds.pk 03/16/21 Unknown Rx (6-Day Pack, 21 Tabs)] Zinc [Zinc 50mg TAB] 50 mg PO DAILY #30 tablet 03/16/21 Unknown Rx Allergies Allergy/AdvReac Type Severity Reaction Status Date / Time Pork/Porcine Containing Allergy Rash Verified 11/19/20 00:23 Products turkey Allergy Rash Verified 11/19/20 00:23 beef Allergy Rash Uncoded 11/19/20 00:23 chicken Allergy Rash Uncoded 11/19/20 00:23 ED Review of Systems ROS: Stated complaint: SOB Other details as noted in HPI Comment: All other systems reviewed and negative Constitutional: fever ENT: other (Reports loss of smell and taste) Respiratory: shortness of breath Gastrointestinal: diarrhea ED Past Medical Hx - Past Medical History Previous Medical History?: Yes Additional medical history: COVID + - Surgical History Past Surgical History?: No - Social History Smoking Status: Never Smoker Substance Use Type: None - Medications Home Medications: Home Medications Medication Instructions Recorded Confirmed Last Taken Type Cyclobenzaprine [Flexeril] 10 mg PO TID PRN #30 tablet 09/15/18 Unknown Rx Menthol/Camphor [[place] 1 applicatio TP QID PRN #1 tube 09/15/18 Unknown Rx Ointment] Naproxen 500 mg PO BID PRN #30 tablet 09/15/18 Unknown Rx Acetaminophen [Acetaminophen 8 650 mg PO Q8H PRN #12 tablet.er 11/19/20 Unknown Rx Hour] Amoxicillin [Trimox CAP] 500 mg PO BID 10 Days #20 capsule 03/13/21 Unknown Rx Ibuprofen [Motrin 800 MG tab] 800 mg PO Q8HR PRN #21 tablet 03/13/21 Unknown Rx Ascorbic Acid [Vitamin C] 1,000 mg PO Q12H #60 tablet 03/16/21 Unknown Rx Azithromycin [Zithromax Z-ADI] 250 mg PO DAILY #6 tablet 03/16/21 Unknown Rx Benzonatate [Tessalon Perles] 100 mg PO Q8HR PRN #30 capsule 03/16/21 Unknown Rx Cetirizine HCl [Zyrtec 10mg tab] 10 mg PO DAILY #30 tablet 03/16/21 Unknown Rx Famotidine [Pepcid] 20 mg PO BID #30 tablet 03/16/21 Unknown Rx Ondansetron [Zofran Odt] 4 mg PO Q6HR PRN #20 tab.rapdis 03/16/21 Unknown Rx Prednisone [predniSONE 10 mg 10 mg PO .TAPER #21 tab.ds.pk 03/16/21 Unknown Rx (6-Day Pack, 21 Tabs)] Zinc [Zinc 50mg TAB] 50 mg PO DAILY #30 tablet 03/16/21 Unknown Rx ED Physical Exam - General Limitations: No Limitations General appearance: alert - Head Head exam: Present: atraumatic, normocephalic - Eye Eye exam: Present: normal appearance - ENT ENT exam: Present: mucous membranes moist - Neck Neck exam: Present: normal inspection - Respiratory Respiratory exam: Present: respiratory distress, other (Tachypneic) - Cardiovascular Cardiovascular Exam: Present: normal rhythm, tachycardia - GI/Abdominal GI/Abdominal exam: Present: soft. Absent: distended, tenderness - Extremities Exam Extremities exam: Present: normal inspection - Neurological Exam Neurological exam: Present: alert, oriented X3 - Psychiatric Psychiatric exam: Present: normal affect, normal mood - Skin Skin exam: Present: warm, dry, intact, normal color ED Course Vital Signs 03/20/21 03/20/21 03/20/21 09:19 09:25 09:30 Temperature 103.3 F H Pulse Rate 102 H 107 H 107 H Respiratory 19 Rate Blood Pressure 112/76 Blood Pressure 112/76 [Left] O2 Sat by Pulse 98 98 Oximetry 03/20/21 03/20/21 03/20/21 10:08 10:40 11:20 Temperature Pulse Rate 115 H 100 H Respiratory 32 H 19 Rate Blood Pressure Blood Pressure 113/70 108/66 [Left] O2 Sat by Pulse 92 99 97 Oximetry 03/20/21 03/20/21 03/20/21 11:26 11:28 12:44 Temperature 100.6 F H Pulse Rate 110 H Respiratory 22 Rate Blood Pressure Blood Pressure 121/63 [Left] O2 Sat by Pulse 88 98 97 Oximetry 03/20/21 13:50 Temperature Pulse Rate 85 Respiratory 20 Rate Blood Pressure Blood Pressure 96/50 [Left] O2 Sat by Pulse 100 Oximetry ED Medical Decision Making - Lab Data Result diagrams: 03/20/21 10:31 03/20/21 10:31 - EKG Data -: EKG Interpreted by Me EKG shows normal: sinus rhythm, axis, intervals, QRS complexes, ST-T waves Rate: normal - EKG Data Interpretation: no acute changes - Radiology Data Radiology results: report reviewed, image reviewed - Medical Decision Making 20-year-old male, Covid positive, presents to ED with difficulty breathing. Patient is hypoxic, tachypneic. He was placed on high flow nasal cannula. Chest x-ray shows Covid pneumonia. Blood cultures drawn, patient given Ro cephin, azithromycin, and Decadron. Patient will be admitted by hospitalist, Dr. Evans, for further management. - Differential Diagnosis Pneumonia Critical Care Time: Yes Critical care time in (mins) excluding proc time.: 35 Critical care attestation.: If time is entered above; I have spent that time in minutes in the direct care of this critically ill patient, excluding procedure time. Critical Care Time: 35 min ED Disposition Clinical Impression: Pneumonia, Acute respiratory failure with hypoxia, COVID-19 Sepsis Qualifiers: Acute respiratory failure type: with hypoxia Disposition: OP ADMIT IP TO THIS HOSP Is pt being admited?: Yes Condition: Stable Time of Disposition: 11:27
[2021-03-20] MEDS ORDERED: ACETAMINOPHEN 500 MG TAB PO ONE (10:31)
[2021-03-20 10:49] LABS: Basophils % (Auto) 0.3 % (0.0-1.8); Hematocrit 43.1 % (35.5-45.6); Hemoglobin 14.6 gm/dl (11.8-15.2); Lymphocytes # (Auto) 0.6 K/mm3 (1.2-5.4); Lymphocytes % (Auto) 4.6 % (13.4-35.0); Mean Corpuscular HGB Conc 34 % (32-34); Mean Corpuscular Volume 90 fl (84-94); Monocytes # (Auto) 0.6 K/mm3 (0.0-0.8); Monocytes % (Auto) 5.1 % (0.0-7.3); Platelet Count 250 K/mm3 (140-440); Red Blood Count 4.77 M/mm3 (3.65-5.03); Red Cell Distribution Width 12.3 % (13.2-15.2)
[2021-03-20 11:01] LABS: BUN/Creatinine Ratio 19; Blood Urea Nitrogen 17 mg/dL (9-20); Calcium 8.8 mg/dL (8.4-10.2); Hemolysis Index 2
--- NOTE | 2021-03-20 11:27 | History and Physical Report ---
History of Present Illness Chief complaint: My breathing is worse History of present illness: 20 YO Male with Coronavirus Infection diagnosed 1 week ago, who failed outpatient therapy, presents to ED for evaluation. Patient reports "my breathing is worse". Patient states that he has experienced body aches, fever, dry cough, dyspnea on exertion, dyspnea at rest, shortness of breath, loss of sense of smell, loss of sense of taste. Patient represents to ED for evaluation of the aforementioned symptoms. EMS was notified and upon arrival the patient was found to be in respiratory distress and was placed on supplemental oxygen and transported to [facility] for further care and evaluation of the aforementioned symptoms. The patient was seen and evaluated in the emergency department. All lab and imaging studies reviewed. The patient was found to have a temperature of 103.3 F, a respiratory rate in the 40s, a pulse oximetry of 87% on room air at rest which is consistent with acute hypoxemic respiratory failure. Patient underwent chest x-ray and was found to have bilateral pneumonia, as well as sepsis suspected secondary to coronavirus infection. Patient admitted to medical floor and initiated on sepsis protocol as well as coronavirus protocol. Patient also placed on high flow supplemental oxygen with mild improvement in symptoms. Patient is unable to speak in complete sentences, is using accessory muscles to breathe, tripoding. Patient uses head gestures to deny chills, chest pain, palpitation, skin rash, unilateral leg swelling, calf pain, prolonged travel/immobility, individual/family history of DVT/PE/bleeding/blood clotting disorders. No prior admission for review. No medication listed at time of admission for reconciliation. Past History Past Medical History: other (See HPI) Past Surgical History: No surgical history, Other (Reviewed) Social history: single. denies: smoking, alcohol abuse, prescription drug abuse Family history: hypertension Medications and Allergies Allergies Allergy/AdvReac Type Severity Reaction Status Date / Time Pork/Porcine Containing Allergy Rash Verified 11/19/20 00:23 Products turkey Allergy Rash Verified 11/19/20 00:23 beef Allergy Rash Uncoded 11/19/20 00:23 chicken Allergy Rash Uncoded 11/19/20 00:23 Home Medications Medication Instructions Recorded Confirmed Last Taken Type Cyclobenzaprine [Flexeril] 10 mg PO TID PRN #30 tablet 09/15/18 Unknown Rx Menthol/Camphor [[place] 1 applicatio TP QID PRN #1 tube 09/15/18 Unknown Rx Ointment] Naproxen 500 mg PO BID PRN #30 tablet 09/15/18 Unknown Rx Acetaminophen [Acetaminophen 8 650 mg PO Q8H PRN #12 tablet.er 11/19/20 Unknown Rx Hour] Amoxicillin [Trimox CAP] 500 mg PO BID 10 Days #20 capsule 03/13/21 Unknown Rx Ibuprofen [Motrin 800 MG tab] 800 mg PO Q8HR PRN #21 tablet 03/13/21 Unknown Rx Ascorbic Acid [Vitamin C] 1,000 mg PO Q12H #60 tablet 03/16/21 Unknown Rx Azithromycin [Zithromax Z-ADI] 250 mg PO DAILY #6 tablet 03/16/21 Unknown Rx Benzonatate [Tessalon Perles] 100 mg PO Q8HR PRN #30 capsule 03/16/21 Unknown Rx Cetirizine HCl [Zyrtec 10mg tab] 10 mg PO DAILY #30 tablet 03/16/21 Unknown Rx Famotidine [Pepcid] 20 mg PO BID #30 tablet 03/16/21 Unknown Rx Ondansetron [Zofran Odt] 4 mg PO Q6HR PRN #20 tab.rapdis 03/16/21 Unknown Rx Prednisone [predniSONE 10 mg 10 mg PO .TAPER #21 tab.ds.pk 03/16/21 Unknown Rx (6-Day Pack, 21 Tabs)] Zinc [Zinc 50mg TAB] 50 mg PO DAILY #30 tablet 03/16/21 Unknown Rx Review of Systems Constitutional: fever, weakness, malaise Ears, nose, mouth and throat: other (Loss of sense of smell, loss of sense of taste), no ear pain, no ear discharge, no tinnitis, no nose pain, no nasal congestion Cardiovascular: no chest pain, no orthopnea, no palpitations, no rapid/irregular heart beat Respiratory: cough, cough with sputum, shortness of breath, dyspnea on exertion, no hemoptysis, no pain on inspiration Gastrointestinal: no nausea, no vomiting, no diarrhea, no constipation Genitourinary Male: no hematuria, no flank pain, no discharge, no urinary frequency, no urinary hesitancy Rectal: no pain, no incontinence, no bleeding Musculoskeletal: no neck stiffness, no neck pain, no shooting arm pain, no arm numbness/tingling, no low back pain Integumentary: no rash, no pruritis, no redness, no sores, no wounds Neurological: no transient paralysis, no paralysis, no weakness, no parathesias, no numbness Psychiatric: no memory loss, no change in sleep habits, no sleep disturbances, no insomnia, no hypersomnia, no change in appetite Endocrine: no cold intolerance, no heat intolerance, no excessive thirst, no polydipsia, no polyuria Hematologic/Lymphatic: no easy bruising, no easy bleeding, no lymphedema Allergic/Immunologic: no urticaria, no allergic rhinitis, no persistent infections Exam - Constitutional Vitals: Temp Pulse Resp BP Pulse Ox 103.3 F H 100 H 19 108/66 97 03/20/21 09:19 03/20/21 11:20 03/20/21 11:20 03/20/21 11:20 03/20/21 11:20 General appearance: Present: mild distress - EENT Eyes: Present: PERRL ENT: hearing intact, clear oral mucosa - Neck Neck: Present: supple, normal ROM - Respiratory Respiratory effort: labored, pursed lips, accessory muscle use, stridor, other (Tachypnea) Respiratory: bilateral: diminished, rhonchi - Cardiovascular Rhythm: other (Tachycardia) Heart Sounds: Present: S1 & S2. Absent: rub, click - Extremities Extremities: pulses symmetrical, No edema Peripheral Pulses: within normal limits - Abdominal General gastrointestinal: Present: soft, non-tender, non-distended, normal bowel sounds Male genitourinary: Present: normal - Integumentary Integumentary: Present: clear, warm, dry - Musculoskeletal Musculoskeletal: gait normal, strength equal bilaterally - Psychiatric Psychiatric: appropriate mood/affect, intact judgment & insight - Neurologic Neurologic: CNII-XII intact, moves all extremities Results - Labs CBC & Chem 7: 03/20/21 10:31 03/20/21 10:31 Labs: Abnormal lab results 03/20/21 Range/Units 10:31 WBC 12.0 H (4.5-11.0) K/mm3 RDW 12.3 L (13.2-15.2) % Lymph % (Auto) 4.6 L (13.4-35.0) % Lymph # (Auto) 0.6 L (1.2-5.4) K/mm3 Seg Neutrophils % 90.0 H (40.0-70.0) % Seg Neutrophils # 10.8 H (1.8-7.7) K/mm3 Assessment and Plan - Patient Problems (1) Sepsis Current Visit: Yes Status: Acute Qualifiers: Acute respiratory failure type: with hypoxia Plan to address problem: Sepsis protocol: Chest x-ray, CBC, CMP, serial lactic acid level, IV antibiotic therapy, IV fluid resuscitation therapy, maintain mean arterial pressure greater than or equal 65, (2) Acute respiratory failure with hypoxia Current Visit: Yes Status: Acute Plan to address problem: Chest x-ray, supplemental oxygen, pulse oximetry, high flow supplemental oxygen. Will consider noninvasive positive pressure ventilation as clinically indicated. (3) COVID-19 Current Visit: Yes Status: Acute Plan to address problem: Coronavirus protocol: IV steroid therapy, IV antibiotic therapy, high flow supplemental oxygen, pulse oximetry, nebulizer therapy, vitamin C therapy, vitamin D therapy, zinc therapy, prophylactic anticoagulation (4) Pneumonia Current Visit: Yes Status: Acute Plan to address problem: Pneumonia protocol: Chest x-ray, CBC, supplemental oxygen, pulse oximetry, nebulizer therapy, IV antibiotic therapy, blood culture. (5) DVT prophylaxis Current Visit: Yes Status: Acute Plan to address problem: SCD to bilateral lower extremities while in bed, prophylactic anticoagulation.
[2021-03-20] MEDS ORDERED: ACETAMINOPHEN 325 MG TAB PO PRN ×2 (11:28)
[2021-03-20] MEDS ORDERED: HYDROmorphone 1 MG/1 ML INJ IV PRN ×2 (11:28)
[2021-03-20] MEDS ORDERED: oxyCODONE /ACETAMINOPHEN 5-325MG TAB PO PRN (11:28)
[2021-03-20] MEDS ORDERED: SODIUM CHLORIDE 0.9% 1000 ML IV SOLN IV ONE (11:28)
[2021-03-20] MEDS ORDERED: ALBUTEROL 2.5 MG/3 ML NEBU IH PRN (11:28)
--- NOTE | 2021-03-20 11:31 | XRay Report ---
CHEST 1 VIEW 03/20/2021 11:22 AM INDICATION / CLINICAL INFORMATION: sob, COVID +. COMPARISON: 03/16/2021. FINDINGS: SUPPORT DEVICES: None. HEART / MEDIASTINUM: No significant abnormality. LUNGS / PLEURA: Patchy infiltrate at the mid/lower zones right greater than left. Lung volumes are mi ldly diminished. No pneumothorax or significant pleural fluid. ADDITIONAL FINDINGS: No significant additional findings. IMPRESSION: 1. Development of bilateral pneumonia right greater than left. 2. Mild interval decrease in lung volumes. Signer Name: Ady Jarvis MD Signed: 03/20/2021 11:26 AM Workstation Name: [id number]
[2021-03-20] MEDS ORDERED: AZITHROMYCIN/NS 500 MG/250 ML 500 MG/250 ML BAG IV SCH (12:00)
[2021-03-20] MEDS: methylPREDNISolone Sod Succinate 40 MG/1 ML INJ IV SCH ×2 (13:47→21:39)
--- NOTE | 2021-03-20 17:41 | Consultation ---
History of Present Illness - Reason for Consult Consult date: 03/20/21 COVID Requesting physician: ILIR WIN - History of Present Illness 20-year-old male who tested positive for COVID-19 a week before admission, admitted on 03/20/2021 secondary to body aches, fever, dry cough, dyspnea on exertion and shortness of breath associated with loss of smell and taste for 8 days. EMS found patient hypoxic brought him to the emergency room. On arrival, temperature 103.3, HR 102, RR 22, O2 sat 98%, BP P1 12/76. Sats dropped to 88%. Patient currently on high flow nasal cannula O2 30 L. Initial WBC 12. Hemoglobin 14.6. Platelets 250. Creatinine 0.9. SARS-CoV-2 PCR positive. Blood cultures pending. Chest x-ray with bilateral patchy infiltrates. Review of Systems: positive in bold print General: fever, chills, malaise Cutaneous: rash, pruritus Head: headaches or injury Eyes: changes in vision, eye pain, double vision Ears: ear pain, ear discharge, ringing or hearing loss Nose: nose bleeding, stuffiness Mouth & throat: bleeding gums, horseness, no dental problems, or swollen glands Neck: no pain, node enlargement/lumps, tyroid enlargement or tenderness Respiratory: SOB, cough, SILVA, wheezing, sputum, hemoptysis, pleuritic chest pain Cardiovascular: chest pain, leg edema, cyanosis, SILVA, orthopnea Musculoskeletal: edema, deformities, pain Gastrointestinal: nausea, vomiting, hematemesis, diarrhea, constipation, melena, bright red blood in stools, fecal incontinence, jaundice Genitourinary/Reproductive: frequent urination, dysuria, hematuria, incontinence Neurogical: seizures, headaches, weakness, paresthesias, loss of speech or vision; memory loss, vertigo, tremors, numbness Psychiatric: stable mood; excessive anxiety, sadness or moodiness Past History Past Medical History: other (See HPI) Past Surgical History: No surgical history, Other (Reviewed) Social history: single. denies: smoking, alcohol abuse, prescription drug abuse Family history: hypertension Medications and Allergies Allergies Allergy/AdvReac Type Severity Reaction Status Date / Time Pork/Porcine Containing Allergy Rash Verified 11/19/20 00:23 Products turkey Allergy Rash Verified 11/19/20 00:23 beef Allergy Rash Uncoded 11/19/20 00:23 chicken Allergy Rash Uncoded 11/19/20 00:23 Home Medications Medication Instructions Recorded Confirmed Last Taken Type Cyclobenzaprine [Flexeril] 10 mg PO TID PRN #30 tablet 09/15/18 Unknown Rx Menthol/Camphor [[place] 1 applicatio TP QID PRN #1 tube 09/15/18 Unknown Rx Ointment] Naproxen 500 mg PO BID PRN #30 tablet 09/15/18 Unknown Rx Acetaminophen [Acetaminophen 8 650 mg PO Q8H PRN #12 tablet.er 11/19/20 Unknown Rx Hour] Amoxicillin [Trimox CAP] 500 mg PO BID 10 Days #20 capsule 03/13/21 Unknown Rx Ibuprofen [Motrin 800 MG tab] 800 mg PO Q8HR PRN #21 tablet 03/13/21 Unknown Rx Ascorbic Acid [Vitamin C] 1,000 mg PO Q12H #60 tablet 03/16/21 Unknown Rx Azithromycin [Zithromax Z-ADI] 250 mg PO DAILY #6 tablet 03/16/21 Unknown Rx Benzonatate [Tessalon Perles] 100 mg PO Q8HR PRN #30 capsule 03/16/21 Unknown Rx Cetirizine HCl [Zyrtec 10mg tab] 10 mg PO DAILY #30 tablet 03/16/21 Unknown Rx Famotidine [Pepcid] 20 mg PO BID #30 tablet 03/16/21 Unknown Rx Ondansetron [Zofran Odt] 4 mg PO Q6HR PRN #20 tab.rapdis 03/16/21 Unknown Rx Prednisone [predniSONE 10 mg 10 mg PO .TAPER #21 tab.ds.pk 03/16/21 Unknown Rx (6-Day Pack, 21 Tabs)] Zinc [Zinc 50mg TAB] 50 mg PO DAILY #30 tablet 03/16/21 Unknown Rx Active Meds: Active Medications Acetaminophen (Acetaminophen 325 Mg Tab) 650 mg PO Q4H PRN PRN Reason: Pain MILD(1-3)/Fever >100.5/HURD Albuterol (Albuterol 2.5 Mg/3 Ml Nebu) 2.5 mg IH Q4HRT PRN PRN Reason: Shortness Of Breath Ascorbic Acid (Ascorbic Acid 500 Mg Tab) 500 mg PO BID SHAAN Cholecalciferol (Cholecalciferol (Vit D3) 1000 Unit (25 Mcg) Tab) 1,000 unit PO QDAY [facility] Heparin Sodium (Porcine) (Heparin 5,000 Unit/1 Ml Vial) 5,000 unit SUB-Q Q12HR [facility] Hydromorphone HCl (Hydromorphone 1 Mg/1 Ml Inj) 0.25 mg IV Q4H PRN PRN Reason: Pain, Moderate (4-6) Hydromorphone HCl (Hydromorphone 1 Mg/1 Ml Inj) 0.5 mg IV Q12H PRN PRN Reason: Pain , Severe (7-10) Ceftriaxone Sodium (Rocephin/Ns 2 Gm/100 Ml) 2 gm in 100 mls @ 200 mls/hr IV Q24H SHAAN; Protocol Azithromycin (Zithromax/Ns) 500 mg in 250 mls @ 250 mls/hr IV Q24H SHAAN; Protocol Last Admin: 03/20/21 12:08 Dose: Not Given Documented by: Methylprednisolone Sodium Succinate (Methylprednisolone Sod Succinate 40 Mg/1 Ml Inj) 40 mg IV Q8HR [facility] Last Admin: 03/20/21 13:47 Dose: 40 mg Documented by: Ondansetron HCl (Ondansetron 4 Mg/2 Ml Inj) 4 mg IV Q8H PRN PRN Reason: Nausea And Vomiting Oxycodone/Acetaminophen (Oxycodone /Acetaminophen 5-325mg Tab) 1 tab PO Q12H PRN PRN Reason: Pain, Moderate (4-6) Sodium Chloride (Sodium Chloride 0.9% 10 Ml Flush Syringe) 10 ml IV BID [facility] Sodium Chloride (Sodium Chloride 0.9% 10 Ml Flush Syringe) 10 ml IV PRN PRN PRN Reason: LINE FLUSH Zinc Sulfate (Zinc Sulfate 220 Mg Cap) 220 mg PO BID [facility] Physical Examination - Physical Exam Narrative exam: Unable to obtain patient is out of the room. - Constitutional Vitals: Vital Signs Temp Pulse Resp BP Pulse Ox 100.6 F H 85 20 96/50 100 03/20/21 12:44 03/20/21 13:50 03/20/21 13:50 03/20/21 13:50 03/20/21 13:50 Temperature -Last 24 Hours Temperature 100.6 F Temperature 103.3 F Results - Labs CBC & Chem 7: 03/20/21 10:31 03/20/21 10:31 Labs: Abnormal lab results 03/20/21 03/20/21 Range/Units 10:31 10:35 WBC 12.0 H (4.5-11.0) K/mm3 RDW 12.3 L (13.2-15.2) % Lymph % (Auto) 4.6 L (13.4-35.0) % Lymph # (Auto) 0.6 L (1.2-5.4) K/mm3 Seg Neutrophils % 90.0 H (40.0-70.0) % Seg Neutrophils # 10.8 H (1.8-7.7) K/mm3 Coronavirus (PCR) Positive A (Negative) Assessment and Plan Cultures: Blood culture pending SARS CoV2 PCR positive Assessment: 20-year-old male who tested positive for COVID-19 a week before admission, admitted on 03/20/2021 secondary to body aches, fever, dry cough, dyspnea on exertion and shortness of breath associated with loss of smell and taste for 8 days: #Severe sepsis: Present on admission with high fever, tachycardia, hypoxia, secondary to COVID-19 infection. #Severe COVID pneumonia: Chest x-ray with bilateral patchy infiltrates. Patient is unvaccinated. Inflammatory markers are not available at this time. #Acute hypoxemic respiratory failure: O2 sat drops. Patient currently on high flow nasal cannula O2 at 30 L. Recommendations: -Pulmonary consult -Start Dexamethasone 6 mg IV/PO daily for 10 days -Start Remdesivir for 5 days (CrCl>30 mg/mL) -Patient may be a candidate for Tocilizumab if CRP is >7.5 and remains on high flow nasal cannula O2 -Monitor inflammatory markers - ferritin, Ddimer, CRP, LDH, ordered a stat -Monitor liver function test on Remdesivir -Continue anticoagulation per System Protocol -Prone positioning as possible -Okay to stop ceftriaxone and azithromycin if procalcitonin <0.25 ng/mL All laboratory, cultures and imaging were reviewed. Will follow Mara Rodríguez MD Infectious Diseases [facility] M [phone] O [phone]
[2021-03-20 18:54] LABS: Alanine Aminotransferase 15 units/L (7-56); Albumin 3.2 g/dL (3.9-5); BUN/Creatinine Ratio 19; Blood Urea Nitrogen 15 mg/dL (9-20); Calcium 8.4 mg/dL (8.4-10.2); Hemolysis Index 7
[2021-03-20 19:01] LABS: C-Reactive Protein 14.8 mg/dL (0.00-1.30)
[2021-03-20] MEDS ORDERED: REMDESIVIR 200 MG in SODIUM CHLORIDE 0.9% 250ML 250 ML IV ONE (20:00)
[2021-03-20] MEDS: SODIUM CHLORIDE 0.9% 50 ML IVPB IV SCH (21:39)
[2021-03-20] MEDS: ZINC SULFATE 220 MG CAP PO SCH (21:39)
[2021-03-20] MEDS: ASCORBIC ACID 500 MG TAB PO SCH (21:39)
[2021-03-20] MEDS ORDERED: HEPARIN 5,000 UNIT/1 ML VIAL SUB-Q SCH (22:00)
[2021-03-21] MEDS: methylPREDNISolone Sod Succinate 40 MG/1 ML INJ IV SCH (06:32)
[2021-03-21 07:38] LABS: Alanine Aminotransferase 15 units/L (7-56); Albumin 3.5 g/dL (3.9-5); Blood Urea Nitrogen 17 mg/dL (9-20); Calcium 8.9 mg/dL (8.4-10.2); Hemolysis Index 7
[2021-03-21 07:42] LABS: BUN/Creatinine Ratio 24
--- NOTE | 2021-03-21 08:18 | Progress Note ---
Assessment and Plan Assessment and plan: 20 YO Male with Coronavirus Infection diagnosed 1 week ago, who failed outpatient therapy, presents to ED for evaluation. Patient reports "my breathing is worse". Patient states that he has experienced body aches, fever, dry cough, dyspnea on exertion, dyspnea at rest, shortness of breath, loss of sense of smell, loss of sense of taste. Patient represents to ED for evaluation of the aforementioned symptoms. EMS was notified and upon arrival the patient was found to be in respiratory distress and was placed on supplemental oxygen and transported to [facility] for further care and evaluation of the aforementioned symptoms. The patient was seen and evaluated in the emergency department. All lab and imaging studies reviewed. The patient was found to have a temperature of 103.3 F, a respiratory rate in the 40s, a pulse oximetry of 87% on room air at rest which is consistent with acute hypoxemic respiratory failure. Patient underwent chest x-ray and was found to have bilateral pneumonia, as well as sepsis suspected secondary to coronavirus infection. Patient admitted to medical floor and initiated on sepsis protocol as well as coronavirus protocol. Patient also placed on high flow supplemental oxygen with mild improvement in symptoms. Patient is unable to speak in complete sentences, is using accessory muscles to breathe, tripoding. Patient uses head gestures to deny chills, chest pain, palpitation, skin rash, unilateral leg swelling, calf pain, prolonged travel/immobility, individual/family history of DVT/PE/bleeding/blood clotting disorders. No prior admission for review. No medication listed at time of admission for reconciliation. CXR: Patchy Infiltrate (1) Sepsis Current Visit: Yes Status: Acute Qualifiers: Acute respiratory failure type: with hypoxia Plan to address problem: Sepsis protocol: Chest x-ray, CBC, CMP, serial lactic acid level, IV antibiotic therapy, IV fluid resuscitation therapy, maintain mean arterial pressure greater than or equal 65, (2) Acute respiratory failure with hypoxia Current Visit: Yes Status: Acute Plan to address problem: Chest x-ray, supplemental oxygen, pulse oximetry, high flow supplemental oxygen. Will consider noninvasive positive pressure ventilation as clinically indicated. (3) COVID-19 Current Visit: Yes Status: Acute Plan to address problem: Coronavirus protocol: IV steroid therapy, IV antibiotic therapy, high flow supplemental oxygen, pulse oximetry, nebulizer therapy, vitamin C therapy, vitamin D therapy, zinc therapy, prophylactic anticoagulation (4) Pneumonia Current Visit: Yes Status: Acute Plan to address problem: Pneumonia protocol: Chest x-ray, CBC, supplemental oxygen, pulse oximetry, neb ulizer therapy, IV antibiotic therapy, blood culture. (5) DVT prophylaxis Current Visit: Yes Status: Acute Plan to address problem: SCD to bilateral lower extremities while in bed, prophylactic anticoagulation. 03/21: Continue supportive care, continues on high flow oxygen, will obtain Pulmonary consult. PRONE position as tolerated. Discontinue abx secondary to low Procalciton, may do trial of lasix and evaluate. History Interval history: Patient seen and examined this morning was admitted with hypoxic respiratory failure and fever secondary to COVID-19 pneumonia. This morning remains on high flow oxygen reports that he is doing "so-so Hospitalist Physical - Physical exam Narrative exam: VITAL SIGNS: Reviewed. GENERAL: The patient appears normally developed, mild distress, on high flow oxygen 40% 35 L vital signs as documented. HEAD: No signs of head trauma. EYES: Pupils are equal. Extraocular motions intact. EARS: Hearing grossly intact. MOUTH: Oropharynx is normal. NECK: No adenopathy, no JVD. CHEST: Chest with diminished breath sounds bilaterally. No wheezes, rales, or rhonchi. CARDIAC: Regular rate and rhythm. S1 and S2, without murmurs, gallops, or rubs. VASCULAR: No Edema. Peripheral pulses normal and equal in all extremities. ABDOMEN: Soft, non tender and non distended. No rebound or guarding, and no masses palpated. Bowel Sounds normal. MUSCULOSKELETAL: Good range of motion of all major joints. Extremities without clubbing, cyanosis or edema. NEUROLOGIC EXAM: Alert and oriented x 3 No focal sensory or strength deficits. Speech normal. Follows commands. PSYCHIATRIC: Mood normal. SKIN: detail exam as documented in skin assessment - Constitutional Vitals: Temp Pulse Resp BP Pulse Ox 100.4 F H 88 20 123/72 95 03/20/21 21:26 03/20/21 21:26 03/20/21 22:40 03/20/21 21:26 03/21/21 08:11 General appearance: Present: mild distress Results - Labs CBC & Chem 7: 03/20/21 10:31 03/21/21 06:30 Labs: Laboratory Last Values WBC 12.0 K/mm3 (4.5-11.0) H 03/20/21 10:31 RBC 4.77 M/mm3 (3.65-5.03) 03/20/21 10:31 Hgb 14.6 gm/dl (11.8-15.2) 03/20/21 10:31 Hct 43.1 % (35.5-45.6) 03/20/21 10:31 MCV 90 fl (84-94) 03/20/21 10:31 MCH 31 pg (28-32) 03/20/21 10:31 MCHC 34 % (32-34) 03/20/21 10:31 RDW 12.3 % (13.2-15.2) L 03/20/21 10:31 Plt Count 250 K/mm3 (140-440) 03/20/21 10:31 Lymph % (Auto) 4.6 % (13.4-35.0) L 03/20/21 10:31 [place] % (Auto) 5.1 % (0.0-7.3) 03/20/21 10:31 Eos % (Auto) 0.0 % (0.0-4.3) 03/20/21 10:31 Baso % (Auto) 0.3 % (0.0-1.8) 03/20/21 10:31 Lymph # (Auto) 0.6 K/mm3 (1.2-5.4) L 03/20/21 10:31 [place] # (Auto) 0.6 K/mm3 (0.0-0.8) 03/20/21 10:31 Eos # (Auto) 0.0 K/mm3 (0.0-0.4) 03/20/21 10:31 Baso # (Auto) 0.0 K/mm3 (0.0-0.1) 03/20/21 10:31 Seg Neutrophils % 90.0 % (40.0-70.0) H 03/20/21 10:31 Seg Neutrophils # 10.8 K/mm3 (1.8-7.7) H 03/20/21 10:31 D-Dimer 372.51 ng/mlDDU (0-234) H 03/20/21 18:00 Sodium 138 mmol/L (137-145) 03/21/21 06:30 Potassium 4.2 mmol/L (3.6-5.0) 03/21/21 06:30 Chloride 102.7 mmol/L (98-107) 03/21/21 06:30 Carbon Dioxide 24 mmol/L (22-30) 03/21/21 06:30 Anion Gap 16 mmol/L 03/21/21 06:30 BUN 17 mg/dL (9-20) 03/21/21 06:30 Creatinine 0.7 mg/dL (0.8-1.3) L 03/21/21 06:30 Estimated GFR > 60 ml/min 03/21/21 06:30 BUN/Creatinine Ratio 24 % 03/21/21 06:30 Glucose 122 mg/dL (75-100) H 03/21/21 06:30 Lactic Acid 1.00 mmol/L (0.7-2.0) 03/20/21 18:00 Calcium 8.9 mg/dL (8.4-10.2) 03/21/21 06:30 Ferritin 615.1 ng/mL (30.0-300.0) H 03/20/21 18:00 Total Bilirubin 0.60 mg/dL (0.1-1.2) 03/21/21 06:30 AST 30 units/L (5-40) 03/21/21 06:30 ALT 15 units/L (7-56) 03/21/21 06:30 Alkaline Phosphatase 50 units/L (35-129) 03/21/21 06:30 Lactate Dehydrogenase 503 units/L (91-180) H 03/20/21 18:00 C-Reactive Protein 14.80 mg/dL (0.00-1.30) H 03/20/21 18:00 Total Protein 7.2 g/dL (6.3-8.2) 03/21/21 06:30 Albumin 3.5 g/dL (3.9-5) L 03/21/21 06:30 Albumin/Globulin Ratio 0.9 % 03/21/21 06:30 Coronavirus (PCR) Positive (Negative) A 03/20/21 10:35 Microbiology: Microbiology 03/20/21 10:31 Peripheral/Venous Blood Culture - Preliminary Culture in Progress 03/20/21 10:31 Peripheral/Venous Blood Culture - Preliminary Culture in Progress Koenig/IV: Voiding Method Urinal Active Medications - Current Medications Current Medications: Generic Name Dose Route Start Last Admin Trade Name Freq PRN Reason Stop Dose Admin Acetaminophen 650 mg 03/20/21 11:28 03/20/21 21:40 Acetaminophen 325 Mg Tab PO 650 mg Q4H PRN Administration Pain MILD(1-3)/Fever >100.5/HURD Ascorbic Acid 500 mg 03/20/21 22:00 03/20/21 21:39 Ascorbic Acid 500 Mg Tab PO 500 mg BID SHAAN Administration Cholecalciferol 1,000 unit 03/21/21 10:00 Cholecalciferol (Vit D3) 1000 Unit (25 Mcg) Tab PO QDAY [facility] Heparin Sodium (Porcine) 5,000 unit 03/20/21 22:00 Heparin 5,000 Unit/1 Ml Vial SUB-Q Q12HR [facility] Hydromorphone HCl 0.25 mg 03/20/21 11:28 Hydromorphone 1 Mg/1 Ml Inj IV Q4H PRN Pain, Moderate (4-6) Hydromorphone HCl 0.5 mg 03/20/21 11:28 Hydromorphone 1 Mg/1 Ml Inj IV Q12H PRN Pain , Severe (7-10) Ceftriaxone Sodium 2 gm in 100 mls @ 200 mls/hr 03/21/21 12:00 Rocephin/Ns 2 Gm/100 Ml IV Q24H [facility] Protocol Azithromycin 500 mg in 250 mls @ 250 mls/hr 03/20/21 12:00 03/20/21 12:08 Zithromax/Ns IV Not Given Q24H [facility] Protocol REMDESIVIR 100 mg/ Sodium 250 mls @ 500 mls/hr 03/21/21 21:00 Chloride IV 03/24/21 21:29 Q24HR@2100 [facility] Methylprednisolone Sodium Succinate 40 mg 03/20/21 14:00 03/21/21 06:32 Methylprednisolone Sod Succinate 40 Mg/1 Ml Inj IV 40 mg Q8HR [facility] Administration Ondansetron HCl 4 mg 03/20/21 11:28 Ondansetron 4 Mg/2 Ml Inj IV Q8H PRN Nausea And Vomiting Oxycodone/Acetaminophen 1 tab 03/20/21 11:28 Oxycodone /Acetaminophen 5-325mg Tab PO Q12H PRN Pain, Moderate (4-6) Sodium Chloride 10 ml 03/20/21 22:00 03/20/21 21:41 Sodium Chloride 0.9% 10 Ml Flush Syringe IV 10 ml BID SHAAN Administration Sodium Chloride 10 ml 03/20/21 11:28 Sodium Chloride 0.9% 10 Ml Flush Syringe IV PRN PRN LINE FLUSH Sodium Chloride 50 ml 03/20/21 20:30 03/20/21 21:39 Sodium Chloride 0.9% 50 Ml Ivpb IV 03/24/21 21:01 50 ml Q24HR@2100 SHAAN Administration Zinc Sulfate 220 mg 03/20/21 22:00 03/20/21 21:39 Zinc Sulfate 220 Mg Cap PO 220 mg BID SHAAN Administration
[2021-03-21] MEDS ORDERED: FUROSEMIDE 40 MG/4 ML INJ IV SCH (11:00)
[2021-03-21] MEDS: ASCORBIC ACID 500 MG TAB PO SCH ×2 (11:07→21:43)
[2021-03-21] MEDS: ZINC SULFATE 220 MG CAP PO SCH ×2 (11:07→21:43)
[2021-03-21] MEDS: CHOLECALCIFEROL (VIT D3) 1000 UNIT (25 mcg) TAB PO SCH (11:09)
[2021-03-21] MEDS ORDERED: cefTRIAXone/NS 2 GM/100 ML 2 GM/100 ML BAG IV SCH (12:00)
[2021-03-21] MEDS: dexAMETHasone 4 MG/ML VIAL IV SCH (12:15)
--- NOTE | 2021-03-21 12:40 | Consultation ---
History of Present Illness Consult date: 03/21/21 Requesting physician: JOHNNIE KRAMER Reason for consult: hypoxemia, other (COVID 19) History of present illness: 20 y/o male diagnosed with COVID 8 days ago who now presents with worsening symptoms and acute respiratory failure. Elevated inflammatory markers and CRP is 14. Started on steroids and Remdesivir. ID is following as well. Currently on HFNC, not in any visible distress. Remainder is negative. patient has been seen in the ed several times prior to this admission for multiple other complaints. Remainder is negative. Past History Past Medical History: No medical history Past Surgical History: No surgical history Social history: single. denies: smoking, alcohol abuse, prescription drug abuse Family history: hypertension Medications and Allergies Allergies Allergy/AdvReac Type Severity Reaction Status Date / Time Pork/Porcine Containing Allergy Rash Verified 11/19/20 00:23 Products turkey Allergy Rash Verified 11/19/20 00:23 beef Allergy Rash Uncoded 11/19/20 00:23 chicken Allergy Rash Uncoded 11/19/20 00:23 Home Medications Medication Instructions Recorded Confirmed Last Taken Type Cyclobenzaprine [Flexeril] 10 mg PO TID PRN #30 tablet 09/15/18 03/20/21 Unknown Rx Menthol/Camphor [[place] 1 applicatio TP QID PRN #1 tube 09/15/18 03/20/21 Unknown Rx Ointment] Naproxen 500 mg PO BID PRN #30 tablet 09/15/18 03/20/21 Unknown Rx Acetaminophen [Acetaminophen 8 650 mg PO Q8H PRN #12 tablet.er 11/19/20 03/20/21 Unknown Rx Hour] Amoxicillin [Trimox CAP] 500 mg PO BID 10 Days #20 capsule 03/13/21 03/20/21 Unknown Rx Ibuprofen [Motrin 800 MG tab] 800 mg PO Q8HR PRN #21 tablet 03/13/21 03/20/21 Unknown Rx Ascorbic Acid [Vitamin C] 1,000 mg PO Q12H #60 tablet 03/16/21 03/20/21 Unknown Rx Azithromycin [Zithromax Z-ADI] 250 mg PO DAILY #6 tablet 03/16/21 03/20/21 Unknown Rx Benzonatate [Tessalon Perles] 100 mg PO Q8HR PRN #30 capsule 03/16/21 03/20/21 Unknown Rx Cetirizine HCl [Zyrtec 10mg tab] 10 mg PO DAILY #30 tablet 03/16/21 03/20/21 Unknown Rx Famotidine [Pepcid] 20 mg PO BID #30 tablet 03/16/21 03/20/21 Unknown Rx Ondansetron [Zofran Odt] 4 mg PO Q6HR PRN #20 tab.rapdis 03/16/21 03/20/21 Unknown Rx Prednisone [predniSONE 10 mg 10 mg PO .TAPER #21 tab.ds.pk 03/16/21 03/20/21 Unknown Rx (6-Day Pack, 21 Tabs)] Zinc [Zinc 50mg TAB] 50 mg PO DAILY #30 tablet 03/16/21 03/20/21 Unknown Rx Active Meds: Active Medications Acetaminophen (Acetaminophen 325 Mg Tab) 650 mg PO Q4H PRN PRN Reason: Pain MILD(1-3)/Fever >100.5/HURD Last Admin: 03/20/21 21:40 Dose: 650 mg Documented by: Ascorbic Acid (Ascorbic Acid 500 Mg Tab) 500 mg PO BID [facility] Last Admin: 03/21/21 11:07 Dose: 500 mg Documented by: Cholecalciferol (Cholecalciferol (Vit D3) 1000 Unit (25 Mcg) Tab) 1,000 unit PO QDAY [facility] Last Admin: 03/21/21 11:09 Dose: 1,000 unit Documented by: Dexamethasone (Dexamethasone 4 Mg/Ml Vial) 6 mg IV Q24H [facility] Stop: 03/30/21 12:01 Last Admin: 03/21/21 12:15 Dose: 6 mg Documented by: Furosemide (Furosemide 40 Mg/4 Ml Inj) 40 mg IV ONCE [facility] Stop: 03/21/21 13:00 Heparin Sodium (Porcine) (Heparin 5,000 Unit/1 Ml Vial) 5,000 unit SUB-Q Q12HR [facility] Hydromorphone HCl (Hydromorphone 1 Mg/1 Ml Inj) 0.25 mg IV Q4H PRN PRN Reason: Pain, Moderate (4-6) Hydromorphone HCl (Hydromorphone 1 Mg/1 Ml Inj) 0.5 mg IV Q12H PRN PRN Reason: Pain , Severe (7-10) REMDESIVIR 100 mg/ Sodium (Chloride) 250 mls @ 500 mls/hr IV Q24HR@2100 [facility] Stop: 03/24/21 21:29 Ondansetron HCl (Ondansetron 4 Mg/2 Ml Inj) 4 mg IV Q8H PRN PRN Reason: Nausea And Vomiting Oxycodone/Acetaminophen (Oxycodone /Acetaminophen 5-325mg Tab) 1 tab PO Q12H PRN PRN Reason: Pain, Moderate (4-6) Sodium Chloride (Sodium Chloride 0.9% 10 Ml Flush Syringe) 10 ml IV BID [facility] Last Admin: 03/21/21 11:09 Dose: 10 ml Documented by: Sodium Chloride (Sodium Chloride 0.9% 10 Ml Flush Syringe) 10 ml IV PRN PRN PRN Reason: LINE FLUSH Sodium Chloride (Sodium Chloride 0.9% 50 Ml Ivpb) 50 ml IV Q24HR@2100 [facility] Stop: 03/24/21 21:01 Last Admin: 03/20/21 21:39 Dose: 50 ml Documented by: Zinc Sulfate (Zinc Sulfate 220 Mg Cap) 220 mg PO BID [facility] Last Admin: 03/21/21 11:07 Dose: 220 mg Documented by: Review of Systems All systems: negative Physical Examination Vital signs: Vital Signs Temp Pulse BP Pulse Ox 103.3 F H 102 H 112/76 98 03/20/21 09:19 03/20/21 09:19 03/20/21 09:19 03/20/21 09:19 General appearance: no acute distress, alert Eyes: non-icteric ENT: oropharynx moist Neck: supple Ascultation: Bilateral: clear Percussion: Bilateral: not dull Tactile fremitus: Bilateral: normal Cardiovascular: regular rate and rhythm Results - Laboratory Findings CBC and BMP: 03/20/21 10:31 03/21/21 06:30 PT/INR, D-dimer D-Dimer 372.51 ng/mlDDU (0-234) H 03/20/21 18:00 Abnormal lab findings: Abnormal Labs 03/20/21 03/20/21 03/20/21 10:31 10:35 18:00 WBC 12.0 H RDW 12.3 L Lymph % (Auto) 4.6 L Lymph # (Auto) 0.6 L Seg Neutrophils % 90.0 H Seg Neutrophils # 10.8 H D-Dimer 372.51 H Creatinine Glucose Ferritin Lactate Dehydrogenase C-Reactive Protein Albumin Coronavirus (PCR) Positive A 03/20/21 03/20/21 03/20/21 18:00 18:00 18:00 WBC RDW Lymph % (Auto) Lymph # (Auto) Seg Neutrophils % Seg Neutrophils # D-Dimer Creatinine Glucose 134 H Ferritin 615.1 H Lactate Dehydrogenase 503 H C-Reactive Protein 14.80 H Albumin 3.2 L Coronavirus (PCR) 03/21/21 06:30 WBC RDW Lymph % (Auto) Lymph # (Auto) Seg Neutrophils % Seg Neutrophils # D-Dimer Creatinine 0.7 L Glucose 122 H Ferritin Lactate Dehydrogenase C-Reactive Protein Albumin 3.5 L Coronavirus (PCR) - Diagnostic Findings Chest x-ray: image reviewed (bilateral patchy infiltrates, consistent with his current diagnosis) Assessment and Plan 20 y/o male with acute respiratory failure secondary to COVID 19 1. Agree with steroids and remdesivir and it appears patient is candidate for Remdesivir based on ID note and oxygen requirements 2. Ordered proning 3. Agree with lasix but would assess for need on daily basis 4. Wean FiO2 as tolerated for sats >88% Guarded prognosis, will continue to follow along with you.
--- NOTE | 2021-03-21 14:06 | Electrocardiograph Report ---
[facility] Test Date: 2021-03-20 Test Time: 09:21:59 Pat Name: SARAH BELLA Department: Room: A359 1 Gender: M [employer] Specialist: PRADEEP : 2000 Requested By: CHELY MOORE Order Number: [id number] Reading MD: Ashley Tejada Measurements Intervals [place] Rate: 106 P: 56 SC: 132 QRS: 1 QRSD: 81 T: 2 QT: 306 QTc: 406 Interpretive Statements Sinus tachycardia Low voltage, precordial leads No previous ECG available for comparison Electronically Signed On 03-21-2021 14:06:08 EDT by Ashley Tejada
[2021-03-21] MEDS: REMDESIVIR 100 MG in SODIUM CHLORIDE 0.9% 250ML 250 ML IV SCH (21:43)
[2021-03-21] MEDS: SODIUM CHLORIDE 0.9% 50 ML IVPB IV SCH (21:43)
[2021-03-21] MEDS: ONDANSETRON 4 MG/2 ML INJ IV PRN (23:37)
[2021-03-22] MEDS: guaiFENesin DM 200/20 MG ORAL LIQD 10 ML PO PRN ×2 (05:40→12:33)
[2021-03-22] MEDS: ZINC SULFATE 220 MG CAP PO SCH ×2 (09:15→21:52)
[2021-03-22] MEDS: ASCORBIC ACID 500 MG TAB PO SCH ×2 (09:15→21:52)
[2021-03-22] MEDS: CHOLECALCIFEROL (VIT D3) 1000 UNIT (25 mcg) TAB PO SCH (09:15)
[2021-03-22 09:25] LABS: Alanine Aminotransferase 18 units/L (7-56); Albumin 3.6 g/dL (3.9-5); BUN/Creatinine Ratio 34; Blood Urea Nitrogen 27 mg/dL (9-20); C-Reactive Protein 5.2 mg/dL (0.00-1.30); Hemolysis Index 7
--- NOTE | 2021-03-22 11:12 | Progress Note ---
Assessment and Plan Assessment and plan: 20 YO Male with Coronavirus Infection diagnosed 1 week ago, who failed outpatient therapy, presents to ED for evaluation. Patient reports "my breathing is worse". Patient states that he has experienced body aches, fever, dry cough, dyspnea on exertion, dyspnea at rest, shortness of breath, loss of sense of smell, loss of sense of taste. Patient represents to ED for evaluation of the aforementioned symptoms. EMS was notified and upon arrival the patient was found to be in respiratory distress and was placed on supplemental oxygen and transported to [facility] for further care and evaluation of the aforementioned symptoms. The patient was seen and evaluated in the emergency department. All lab and imaging studies reviewed. The patient was found to have a temperature of 103.3 F, a respiratory rate in the 40s, a pulse oximetry of 87% on room air at rest which is consistent with acute hypoxemic respiratory failure. Patient underwent chest x-ray and was found to have bilateral pneumonia, as well as sepsis suspected secondary to coronavirus infection. Patient admitted to medical floor and initiated on sepsis protocol as well as coronavirus protocol. Patient also placed on high flow supplemental oxygen with mild improvement in symptoms. Patient is unable to speak in complete sentences, is using accessory muscles to breathe, tripoding. Patient uses head gestures to deny chills, chest pain, palpitation, skin rash, unilateral leg swelling, calf pain, prolonged travel/immobility, individual/family history of DVT/PE/bleeding/blood clotting disorders. No prior admission for review. No medication listed at time of admission for reconciliation. CXR: Patchy Infiltrate 03/21: Continue supportive care, continues on high flow oxygen, will obtain Pulmonary consult. PRONE position as tolerated. Discontinue abx secondary to low Procalciton, may do trial of lasix and evaluate. 03/22: Patient remains on high flow still hypoxic. Is currently on dexamethasone in addition to remdesivir. Continue current management we will give additional dose of Lasix today. Continue to encourage proning Zofran as needed I have changed Lovenox to full dose due to persistent hypoxia while we will continue to monitor. (1) Sepsis Current Visit: Yes Status: Acute Qualifiers: Acute respiratory failure type: with hypoxia Plan to address problem: Sepsis protocol: Chest x-ray, CBC, CMP, serial lactic acid level, IV antibiotic therapy, IV fluid resuscitation therapy, maintain mean arterial pressure greater than or equal 65, (2) Acute respiratory failure with hypoxia Current Visit: Yes Status: Acute Plan to address problem: Chest x-ray, supplemental oxygen, pulse oximetry, high flow supplemental oxygen. Will consider noninvasive positive pressure ventilation as clinically indic ated. (3) COVID-19 Current Visit: Yes Status: Acute Plan to address problem: Coronavirus protocol: IV steroid therapy, IV antibiotic therapy, high flow supplemental oxygen, pulse oximetry, nebulizer therapy, vitamin C therapy, vitamin D therapy, zinc therapy, prophylactic anticoagulation (4) Pneumonia Current Visit: Yes Status: Acute Plan to address problem: Pneumonia protocol: Chest x-ray, CBC, supplemental oxygen, pulse oximetry, nebulizer therapy, IV antibiotic therapy, blood culture. (5) DVT prophylaxis Current Visit: Yes Status: Acute Plan to address problem: SCD to bilateral lower extremities while in bed, prophylactic anticoagulation. The high probability of a clinically significant, sudden or life threatening deterioration of the [pulmonary] system(s) required my full and direct attention, intervention and personal management. The aggregate critical care time was [35] minutes. This time is in addition to time spent performing reported procedures but includes the following: [x] Data Review and interpretation [x] Patient assessment and monitoring of vital signs [x] Documentation [x] Medication orders and management History Interval history: Patient seen and examined this morning was admitted with hypoxic respiratory failure and fever secondary to COVID-19 pneumonia. Continues on High flow. Nausea noted Hospitalist Physical - Physical exam Narrative exam: VITAL SIGNS: Reviewed. GENERAL: The patient appears normally developed, mild distress, on high flow oxygen 50% 35 L vital signs as documented. HEAD: No signs of head trauma. EYES: Pupils are equal. Extraocular motions intact. EARS: Hearing grossly intact. MOUTH: Oropharynx is normal. NECK: No adenopathy, no JVD. CHEST: Chest with diminished breath sounds bilaterally. No wheezes, rales, or rhonchi. CARDIAC: Regular rate and rhythm. S1 and S2, without murmurs, gallops, or rubs. VASCULAR: No Edema. Peripheral pulses normal and equal in all extremities. ABDOMEN: Soft, non tender and non distended. No rebound or guarding, and no masses palpated. Bowel Sounds normal. MUSCULOSKELETAL: Good range of motion of all major joints. Extremities without clubbing, cyanosis or edema. NEUROLOGIC EXAM: Alert and oriented x 3 No focal sensory or strength deficits. Speech normal. Follows commands. PSYCHIATRIC: Mood normal. SKIN: detail exam as documented in skin assessment - Constitutional Vitals: Temp Pulse Resp BP Pulse Ox 97.8 F 69 32 H 110/72 99 03/22/21 04:51 03/22/21 09:15 03/22/21 04:51 03/22/21 09:15 03/22/21 09:15 General appearance: Present: mild distress Results - Labs CBC & Chem 7: 03/20/21 10:31 03/22/21 08:15 Labs: Laboratory Last Values WBC 12.0 K/mm3 (4.5-11.0) H 03/20/21 10:31 RBC 4.77 M/mm3 (3.65-5.03) 03/20/21 10:31 Hgb 14.6 gm/dl (11.8-15.2) 03/20/21 10:31 Hct 43.1 % (35.5-45.6) 03/20/21 10:31 MCV 90 fl (84-94) 03/20/21 10:31 MCH 31 pg (28-32) 03/20/21 10:31 MCHC 34 % (32-34) 03/20/21 10:31 RDW 12.3 % (13.2-15.2) L 03/20/21 10:31 Plt Count 250 K/mm3 (140-440) 03/20/21 10:31 Lymph % (Auto) 4.6 % (13.4-35.0) L 03/20/21 10:31 [place] % (Auto) 5.1 % (0.0-7.3) 03/20/21 10:31 Eos % (Auto) 0.0 % (0.0-4.3) 03/20/21 10:31 Baso % (Auto) 0.3 % (0.0-1.8) 03/20/21 10:31 Lymph # (Auto) 0.6 K/mm3 (1.2-5.4) L 03/20/21 10:31 [place] # (Auto) 0.6 K/mm3 (0.0-0.8) 03/20/21 10:31 Eos # (Auto) 0.0 K/mm3 (0.0-0.4) 03/20/21 10:31 Baso # (Auto) 0.0 K/mm3 (0.0-0.1) 03/20/21 10:31 Seg Neutrophils % 90.0 % (40.0-70.0) H 03/20/21 10:31 Seg Neutrophils # 10.8 K/mm3 (1.8-7.7) H 03/20/21 10:31 D-Dimer 372.51 ng/mlDDU (0-234) H 03/22/21 08:15 Sodium 142 mmol/L (137-145) 03/22/21 08:15 Potassium 3.8 mmol/L (3.6-5.0) 03/22/21 08:15 Chloride 103.6 mmol/L (98-107) 03/22/21 08:15 Carbon Dioxide 26 mmol/L (22-30) 03/22/21 08:15 Anion Gap 16 mmol/L 03/22/21 08:15 BUN 27 mg/dL (9-20) H 03/22/21 08:15 Creatinine 0.8 mg/dL (0.8-1.3) 03/22/21 08:15 Estimated GFR > 60 ml/min 03/22/21 08:15 BUN/Creatinine Ratio 34 % 03/22/21 08:15 Glucose 106 mg/dL (75-100) H 03/22/21 08:15 Glucose 107 mg/dL (75-100) H 03/22/21 08:15 Lactic Acid 1.00 mmol/L (0.7-2.0) 03/20/21 18:00 Calcium 9.0 mg/dL (8.4-10.2) 03/22/21 08:15 Ferritin 566.5 ng/mL (30.0-300.0) H 03/22/21 08:15 Total Bilirubin 1.00 mg/dL (0.1-1.2) 03/22/21 08:15 AST 36 units/L (5-40) 03/22/21 08:15 ALT 18 units/L (7-56) 03/22/21 08:15 Alkaline Phosphatase 52 units/L (35-129) 03/22/21 08:15 Lactate Dehydrogenase 565 units/L (91-180) H 03/22/21 08:15 C-Reactive Protein 5.20 mg/dL (0.00-1.30) H 03/22/21 08:15 Total Protein 7.2 g/dL (6.3-8.2) 03/22/21 08:15 Albumin 3.6 g/dL (3.9-5) L 03/22/21 08:15 Albumin/Globulin Ratio 1.0 % 03/22/21 08:15 Procalcitonin 0.16 ng/mL (<0.15) 03/20/21 18:00 Coronavirus (PCR) Positive (Negative) A 03/20/21 10:35 Microbiology: Microbiology 03/20/21 10:31 Peripheral/Venous Blood Culture - Preliminary NO GROWTH AFTER 24 HOURS 03/20/21 10:31 Peripheral/Venous Blood Culture - Preliminary NO GROWTH AFTER 24 HOURS Koenig/IV: Voiding Method Urinal Active Medications - Current Medications Current Medications: Generic Name Dose Route Start Last Admin Trade Name Freq PRN Reason Stop Dose Admin Acetaminophen 650 mg 03/20/21 11:28 03/20/21 21:40 Acetaminophen 325 Mg Tab PO 650 mg Q4H PRN Administration Pain MILD(1-3)/Fever >100.5/HURD Ascorbic Acid 500 mg 03/20/21 22:00 03/22/21 09:15 Ascorbic Acid 500 Mg Tab PO 500 mg BID SHAAN Administration Cholecalciferol 1,000 unit 03/21/21 10:00 03/22/21 09:15 Cholecalciferol (Vit D3) 1000 Unit (25 Mcg) Tab PO 1,000 unit QDAY SHAAN Administration Dexamethasone 6 mg 03/21/21 12:00 03/21/21 12:15 Dexamethasone 4 Mg/Ml Vial IV 03/30/21 12:01 6 mg Q24H SHAAN Administration Guaifenesin 10 ml 03/22/21 05:06 03/22/21 05:40 Guaifenesin Dm 200/20 Mg Oral Liqd 10 Ml PO 10 ml Q4H PRN Administration Cough Heparin Sodium (Porcine) 5,000 unit 03/20/21 22:00 Heparin 5,000 Unit/1 Ml Vial SUB-Q Q12HR SHAAN Hydromorphone HCl 0.25 mg 03/20/21 11:28 Hydromorphone 1 Mg/1 Ml Inj IV Q4H PRN Pain, Moderate (4-6) Hydromorphone HCl 0.5 mg 03/20/21 11:28 Hydromorphone 1 Mg/1 Ml Inj IV Q12H PRN Pain , Severe (7-10) REMDESIVIR 100 mg/ Sodium 250 mls @ 500 mls/hr 03/21/21 21:00 03/21/21 21:43 Chloride IV 03/24/21 21:29 500 mls/hr Q24HR@2100 SHAAN Administration Ondansetron HCl 4 mg 03/20/21 11:28 03/21/21 23:37 Ondansetron 4 Mg/2 Ml Inj IV 4 mg Q8H PRN Administration Nausea And Vomiting Oxycodone/Acetaminophen 1 tab 03/20/21 11:28 Oxycodone /Acetaminophen 5-325mg Tab PO Q12H PRN Pain, Moderate (4-6) Sodium Chloride 10 ml 03/20/21 22:00 03/22/21 09:16 Sodium Chloride 0.9% 10 Ml Flush Syringe IV 10 ml BID SHAAN Administration Sodium Chloride 10 ml 03/20/21 11:28 Sodium Chloride 0.9% 10 Ml Flush Syringe IV PRN PRN LINE FLUSH Sodium Chloride 50 ml 03/20/21 20:30 03/21/21 21:43 Sodium Chloride 0.9% 50 Ml Ivpb IV 03/24/21 21:01 50 ml Q24HR@2100 SHAAN Administration Zinc Sulfate 220 mg 03/20/21 22:00 03/22/21 09:15 Zinc Sulfate 220 Mg Cap PO 220 mg BID SHAAN Administration Nutrition/Malnutrition Assess - Dietary Evaluation Nutrition/Malnutrition Findings: Nutrition Notes Start: 03/21/21 11:04 Freq: Status: Active Protocol: Document 03/21/21 11:04 JUVE (Rec: 03/21/21 11:13 [id number]) Nutrition Notes Need for Assessment generated from: online banking specialist,MST Initial or Follow up Assessment Current Diagnosis Sepsis,Respiratory Failure Other Pertinent Diagnosis COVID(+), pneu Current Diet Regular Labs/Tests Reviewed Pertinent Medications Solu medrol Height 5 ft 10 in Weight 79.379 kg [place] Body Weight (kg) 75.45 BMI 25.1 Weight change and time frame Pt states UBW aroung 245#. Unsure of accuracy of wt in chart or pt report. He does state he has lost 10# in a week. 4% wt loss in 1 week. Weight Status Overweight Subjective/Other Information RN screen for MST. Pt reports not eating well for 1 week. Pt open to lower sugar ONS. Burn Absent Trauma Absent GI Symptoms Nausea Current % PO Negligible Minimum of two criteria Yes Interpretation of Weight Loss (severe) >2% in 1 week #1 Nutrition Diagnosis Malnutrition Etiology COVID-19 As Evidenced by Signs and Symptoms pt eating <50% of EER in 1 week, >2% wt loss in 1 week Is patient on ventilator? No Is Patient Ambulatory and/or Out of Bed No REE-([place]-[facility]. Jeor-confined to bed) 7547.116 [facility] Additional Notes Protein: 1.2-1.5g/kg (95-119g) Fluid: 1 ml/kcal Nutrition Intervention Change Diet Order: Continue Add Supplement/Snack (indicate name/kcal Ensure HP BID /protein ) Provides kCal: 320 Provides Protein (gm) 32 Goal #1 Meet at least 75% of energy and protein needs via PO and ONS Goal #2 weight maintenance Anticipated Discharge Needs: Regular Follow-Up By: 03/24/21 Additional Comments FU for intakes and ONS tolerance
--- NOTE | 2021-03-22 12:17 | Progress Note ---
Assessment and Plan Cultures: Blood culture no growth today SARS CoV2 PCR positive Assessment: 20-year-old male who tested positive for COVID-19 a week before admission, admitted on 03/20/2021 secondary to body aches, fever, dry cough, dyspnea on exertion and shortness of breath associated with loss of smell and taste for 8 days: #Severe sepsis: Present on admission with high fever, tachycardia, hypoxia, secondary to COVID-19 infection. #Severe COVID pneumonia: Chest x-ray with bilateral patchy infiltrates. Patient is unvaccinated. Inflammatory markers elevated. #Acute hypoxemic respiratory failure: O2 sat drops. Worsening now on high flow nasal cannula O2 at 30 L, 50% Recommendations: -Pulmonary consult -Start Dexamethasone 6 mg IV/PO daily for 10 days -Start Remdesivir for 5 days (CrCl>30 mg/mL) -Start Tocilizumab x 1 initial CRP 15, now on HFNC -Monitor inflammatory markers - ferritin, Ddimer, CRP, LDH -Monitor liver function test on Remdesivir -Continue anticoagulation per System Protocol -Prone positioning as possible Guarded prognosis consider IMCU monitoring All laboratory, cultures and imaging were reviewed. Will follow Mara Rodríguez MD Infectious Diseases Customer Liaison [facility] M [phone] Subjective Date of service: 03/22/21 Principal diagnosis: COVID-19 Interval history: Patient feels sicker complaining now shortness of breath, cough and chest pain. No fever for 24 hours. Objective - Exam Narrative Exam: General appearance: Alert and shows mild respiratory distress Eyes: anicteric sclerae, moist conjunctivae; no lid-lag; PERRLA HENT: Normocephalic, Atraumatic; normal external ears, nares open, oropharynx limited Neck: supple, tracheal midline, no JVD Lungs: Diminished breath sound bilaterally CV: RRR no murmur Abdomen: Soft nontender Extremities: no edema, no cyanosis Skin: No rash. Psych: Anxious Neuro: alert and oriented x 3. Moving all extermities - Constitutional Vitals: Vital Signs Temp Pulse Resp BP Pulse Ox 97.8 F 69 32 H 110/72 100 03/22/21 04:51 03/22/21 09:15 03/22/21 04:51 03/22/21 09:15 03/22/21 10:00 Temperature -Last 24 Hours Temperature 97.8 F Temperature 98.7 F Temperature 98.4 F - Labs CBC & Chem 7: 03/20/21 10:31 03/22/21 08:15 Labs: Abnormal lab results 03/22/21 03/22/21 03/22/21 Range/Units 08:15 08:15 08:15 D-Dimer 372.51 H (0-234) ng/mlDDU BUN 27 H (9-20) mg/dL Glucose 107 H 106 H (75-100) mg/dL Ferritin (30.0-300.0) ng/mL Lactate Dehydrogenase 565 H (91-180) units/L C-Reactive Protein 5.20 H (0.00-1.30) mg/dL Albumin 3.6 L (3.9-5) g/dL 03/22/21 Range/Units 08:15 D-Dimer (0-234) ng/mlDDU BUN (9-20) mg/dL Glucose (75-100) mg/dL Ferritin 566.5 H (30.0-300.0) ng/mL Lactate Dehydrogenase (91-180) units/L C-Reactive Protein (0.00-1.30) mg/dL Albumin (3.9-5) g/dL
[2021-03-22] MEDS: dexAMETHasone 4 MG/ML VIAL IV SCH (12:33)
--- NOTE | 2021-03-22 14:53 | Progress Note ---
Assessment and Plan Impression: Acute hypoxic respiratory failure COVID-19 pneumonia Severe cough Sepsis Recommendation Appreciated ID input Continue with her current therapy with steroids, remdesivir and Actemra. Continue with supplemental oxygen on high flow nasal cannula, monitor oxygen saturation wean as tolerated. Prognosis is guarded. We will continue to follow Subjective Date of service: 03/22/21 Principal diagnosis: COVID-19 Interval history: Continue to have shortness of breath, cough productive of moderate amount of whitish sputum. Complaining of back pain. Currently on high flow nasal cannula at 50%. Does not feel well Objective Vital Signs - 12hr 03/22/21 03/22/21 03/22/21 04:44 04:51 09:03 Temperature 97.8 F Pulse Rate 65 78 Respiratory 32 H Rate Blood Pressure 125/74 115/76 O2 Sat by Pulse 98 97 98 Oximetry 03/22/21 03/22/21 09:15 10:00 Temperature Pulse Rate 69 Respiratory Rate Blood Pressure 110/72 O2 Sat by Pulse 99 100 Oximetry Constitutional: no acute distress, alert, appears uncomfortable, other (Obese) Eyes: non-icteric ENT: oropharynx moist Neck: supple Ascultation: Bilateral: rhonchi Percussion: Bilateral: not dull Tactile fremitus: Bilateral: normal Cardiovascular: other (Tachycardia noted) Gastrointestinal: normoactive bowel sounds, soft, non-tender, other (Obese) Neurologic: normal mental status Psychiatric: mood appropriate CBC and BMP: 03/20/21 10:31 03/22/21 08:15 ABG, PT/INR, D-dimer: PT/INR, D-dimer D-Dimer 372.51 ng/mlDDU (0-234) H 03/22/21 08:15 Abnormal lab findings: Abnormal Labs 03/20/21 03/20/21 03/20/21 10:31 10:35 18:00 WBC 12.0 H RDW 12.3 L Lymph % (Auto) 4.6 L Lymph # (Auto) 0.6 L Seg Neutrophils % 90.0 H Seg Neutrophils # 10.8 H D-Dimer 372.51 H BUN Creatinine Glucose Ferritin Lactate Dehydrogenase C-Reactive Protein Albumin Coronavirus (PCR) Positive A 03/20/21 03/20/21 03/20/21 18:00 18:00 18:00 WBC RDW Lymph % (Auto) Lymph # (Auto) Seg Neutrophils % Seg Neutrophils # D-Dimer BUN Creatinine Glucose 134 H Ferritin 615.1 H Lactate Dehydrogenase 503 H C-Reactive Protein 14.80 H Albumin 3.2 L Coronavirus (PCR) 03/21/21 03/22/21 03/22/21 06:30 08:15 08:15 WBC RDW Lymph % (Auto) Lymph # (Auto) Seg Neutrophils % Seg Neutrophils # D-Dimer 372.51 H BUN 27 H Creatinine 0.7 L Glucose 122 H 107 H Ferritin Lactate Dehydrogenase C-Reactive Protein Albumin 3.5 L 3.6 L Coronavirus (PCR) 03/22/21 03/22/21 08:15 08:15 WBC RDW Lymph % (Auto) Lymph # (Auto) Seg Neutrophils % Seg Neutrophils # D-Dimer BUN Creatinine Glucose 106 H Ferritin 566.5 H Lactate Dehydrogenase 565 H C-Reactive Protein 5.20 H Albumin Coronavirus (PCR) Chest x-ray: image reviewed (Bilateral patchy infiltrate)
[2021-03-22] MEDS ORDERED: TOCILIZUMAB 600 MG in SODIUM CHLORIDE 0.9% 100 ML IV ONE (15:00)
[2021-03-22] MEDS: REMDESIVIR 100 MG in SODIUM CHLORIDE 0.9% 250ML 250 ML IV SCH (21:52)
[2021-03-22] MEDS: SODIUM CHLORIDE 0.9% 50 ML IVPB IV SCH (23:03)
[2021-03-23 05:32] LABS: Alanine Aminotransferase 50 units/L (7-56); Albumin 3.4 g/dL (3.9-5); BUN/Creatinine Ratio 29; Blood Urea Nitrogen 23 mg/dL (9-20); Calcium 8.3 mg/dL (8.4-10.2); Hemolysis Index 6
[2021-03-23] MEDS: CHOLECALCIFEROL (VIT D3) 1000 UNIT (25 mcg) TAB PO SCH (09:06)
[2021-03-23] MEDS: ZINC SULFATE 220 MG CAP PO SCH ×2 (09:06→21:03)
[2021-03-23] MEDS: ASCORBIC ACID 500 MG TAB PO SCH ×2 (09:06→21:03)
--- NOTE | 2021-03-23 10:30 | Progress Note ---
Assessment and Plan Assessment and plan: 20 YO Male with Coronavirus Infection diagnosed 1 week ago, who failed outpatient therapy, presents to ED for evaluation. Patient reports "my breathing is worse". Patient states that he has experienced body aches, fever, dry cough, dyspnea on exertion, dyspnea at rest, shortness of breath, loss of sense of smell, loss of sense of taste. Patient represents to ED for evaluation of the aforementioned symptoms. EMS was notified and upon arrival the patient was found to be in respiratory distress and was placed on supplemental oxygen and transported to [facility] for further care and evaluation of the aforementioned symptoms. The patient was seen and evaluated in the emergency department. All lab and imaging studies reviewed. The patient was found to have a temperature of 103.3 F, a respiratory rate in the 40s, a pulse oximetry of 87% on room air at rest which is consistent with acute hypoxemic respiratory failure. Patient underwent chest x-ray and was found to have bilateral pneumonia, as well as sepsis suspected secondary to coronavirus infection. Patient admitted to medical floor and initiated on sepsis protocol as well as coronavirus protocol. Patient also placed on high flow supplemental oxygen with mild improvement in symptoms. Patient is unable to speak in complete sentences, is using accessory muscles to breathe, tripoding. Patient uses head gestures to deny chills, chest pain, palpitation, skin rash, unilateral leg swelling, calf pain, prolonged travel/immobility, individual/family history of DVT/PE/bleeding/blood clotting disorders. No prior admission for review. No medication listed at time of admission for reconciliation. CXR: Patchy Infiltrate 03/21: Continue supportive care, continues on high flow oxygen, will obtain Pulmonary consult. PRONE position as tolerated. Discontinue abx secondary to low Procalciton, may do trial of lasix and evaluate. 03/22: Patient remains on high flow still hypoxic. Is currently on dexamethasone in addition to remdesivir. Continue current management we will give additional dose of Lasix today. Continue to encourage proning Zofran as needed I have changed Lovenox to full dose due to persistent hypoxia while we will continue to monitor. 03/23: While patient showed some remarkable improvement following Tocilizumab x 1 initial CRP 15, I noticed that his oxygen saturation over time has decreased down to 92% on discussion with infectious disease doctor I believe the patient will benefit from an additional 1 day stay in the hospital. Have placed him on nasal cannula at this time and he can be transferred up to the third floor. We will continue Zofran for nausea continue to encourage proning position. He understands his clinical condition and the sudden change that may occur with Covid patient. In a.m. we will repeat a home O2 evaluation and if he continues to show improvement of oxygen he can be discharged (1) Sepsis Current Visit: Yes Status: Acute Qualifiers: Acute respiratory failure type: with hypoxia Plan to address problem: Sepsis protocol: Chest x-ray, CBC, CMP, serial lactic acid level, IV antibiotic therapy, IV fluid resuscitation therapy, maintain mean arterial pressure greater than or equal 65, (2) Acute respiratory failure with hypoxia Current Visit: Yes Status: Acute Plan to address problem: Chest x-ray, supplemental oxygen, pulse oximetry, high flow supplemental oxygen. Will consider noninvasive positive pressure ventilation as clinically indicated. (3) COVID-19 Current Visit: Yes Status: Acute Plan to address problem: Coronavirus protocol: IV steroid therapy, IV antibiotic therapy, high flow supplemental oxygen, pulse oximetry, nebulizer therapy, vitamin C therapy, vitamin D therapy, zinc therapy, prophylactic anticoagulation (4) Pneumonia Current Visit: Yes Status: Acute Plan to address problem: Pneumonia protocol: Chest x-ray, CBC, supplemental oxygen, pulse oximetry, nebulizer therapy, IV antibiotic therapy, blood culture. (5) DVT prophylaxis Current Visit: Yes Status: Acute Plan to address problem: SCD to bilateral lower extremities while in bed, prophylactic anticoagulation. The high probability of a clinically significant, sudden or life threatening deterioration of the [pulmonary] system(s) required my full and direct attenti on, intervention and personal management. The aggregate critical care time was [35] minutes. This time is in addition to time spent performing reported procedures but includes the following: [x] Data Review and interpretation [x] Patient assessment and monitoring of vital signs [x] Documentation [x] Medication orders and management History Interval history: Patient seen and examined this morning was admitted with hypoxic respiratory failure and fever secondary to COVID-19 pneumonia. This morning patient was noted with oxygen on satting 95% on ambulation remained around 93%. He is asking to be discharged. He did have one episode of vomiting Hospitalist Physical - Physical exam Narrative exam: VITAL SIGNS: Reviewed. GENERAL: The patient appears normally developed, resting comfortably in room in the room vital signs as documented. HEAD: No signs of head trauma. EYES: Pupils are equal. Extraocular motions intact. EARS: Hearing grossly intact. MOUTH: Oropharynx is normal. NECK: No adenopathy, no JVD. CHEST: Chest with diminished breath sounds bilaterally. No wheezes, rales, or rhonchi. CARDIAC: Regular rate and rhythm. S1 and S2, without murmurs, gallops, or rubs. VASCULAR: No Edema. Peripheral pulses normal and equal in all extremities. ABDOMEN: Soft, non tender and non distended. No rebound or guarding, and no masses palpated. Bowel Sounds normal. MUSCULOSKELETAL: Good range of motion of all major joints. Extremities without clubbing, cyanosis or edema. NEUROLOGIC EXAM: Alert and oriented x 3 No focal sensory or strength deficits. Speech normal. Follows commands. PSYCHIATRIC: Mood normal. SKIN: detail exam as documented in skin assessment - Constitutional Vitals: Temp Pulse Resp BP Pulse Ox 99.2 F 80 22 110/60 96 03/23/21 09:28 03/23/21 08:00 03/23/21 08:00 03/23/21 07:40 03/23/21 08:00 General appearance: Present: mild distress Results - Labs CBC & Chem 7: 03/20/21 10:31 03/23/21 04:39 Labs: Laboratory Last Values WBC 12.0 K/mm3 (4.5-11.0) H 03/20/21 10:31 RBC 4.77 M/mm3 (3.65-5.03) 03/20/21 10:31 Hgb 14.6 gm/dl (11.8-15.2) 03/20/21 10:31 Hct 43.1 % (35.5-45.6) 03/20/21 10:31 MCV 90 fl (84-94) 03/20/21 10:31 MCH 31 pg (28-32) 03/20/21 10:31 MCHC 34 % (32-34) 03/20/21 10:31 RDW 12.3 % (13.2-15.2) L 03/20/21 10:31 Plt Count 250 K/mm3 (140-440) 03/20/21 10:31 Lymph % (Auto) 4.6 % (13.4-35.0) L 03/20/21 10:31 [place] % (Auto) 5.1 % (0.0-7.3) 03/20/21 10:31 Eos % (Auto) 0.0 % (0.0-4.3) 03/20/21 10:31 Baso % (Auto) 0.3 % (0.0-1.8) 03/20/21 10:31 Lymph # (Auto) 0.6 K/mm3 (1.2-5.4) L 03/20/21 10:31 [place] # (Auto) 0.6 K/mm3 (0.0-0.8) 03/20/21 10:31 Eos # (Auto) 0.0 K/mm3 (0.0-0.4) 03/20/21 10:31 Baso # (Auto) 0.0 K/mm3 (0.0-0.1) 03/20/21 10:31 Seg Neutrophils % 90.0 % (40.0-70.0) H 03/20/21 10:31 Seg Neutrophils # 10.8 K/mm3 (1.8-7.7) H 03/20/21 10:31 D-Dimer 372.51 ng/mlDDU (0-234) H 03/22/21 08:15 Sodium 140 mmol/L (137-145) 03/23/21 04:39 Potassium 4.0 mmol/L (3.6-5.0) 03/23/21 04:39 Chloride 103.0 mmol/L (98-107) 03/23/21 04:39 Carbon Dioxide 22 mmol/L (22-30) 03/23/21 04:39 Anion Gap 19 mmol/L 03/23/21 04:39 BUN 23 mg/dL (9-20) H 03/23/21 04:39 Creatinine 0.8 mg/dL (0.8-1.3) 03/23/21 04:39 Estimated GFR > 60 ml/min 03/23/21 04:39 BUN/Creatinine Ratio 29 % 03/23/21 04:39 Glucose 91 mg/dL (75-100) 03/23/21 04:39 Lactic Acid 1.00 mmol/L (0.7-2.0) 03/20/21 18:00 Calcium 8.3 mg/dL (8.4-10.2) L 03/23/21 04:39 Ferritin 566.5 ng/mL (30.0-300.0) H 03/22/21 08:15 Total Bilirubin 1.10 mg/dL (0.1-1.2) 03/23/21 04:39 AST 58 units/L (5-40) H 03/23/21 04:39 ALT 50 units/L (7-56) 03/23/21 04:39 Alkaline Phosphatase 54 units/L (35-129) 03/23/21 04:39 Lactate Dehydrogenase 565 units/L (91-180) H 03/22/21 08:15 C-Reactive Protein 5.20 mg/dL (0.00-1.30) H 03/22/21 08:15 Total Protein 6.6 g/dL (6.3-8.2) 03/23/21 04:39 Albumin 3.4 g/dL (3.9-5) L 03/23/21 04:39 Albumin/Globulin Ratio 1.1 % 03/23/21 04:39 Procalcitonin 0.16 ng/mL (<0.15) 03/20/21 18:00 Coronavirus (PCR) Positive (Negative) A 03/20/21 10:35 Microbiology: Microbiology 03/20/21 10:31 Peripheral/Venous Blood Culture - Preliminary NO GROWTH AFTER 48 HOURS 03/20/21 10:31 Peripheral/Venous Blood Culture - Preliminary NO GROWTH AFTER 48 HOURS Koenig/IV: Voiding Method Urinal Active Medications - Current Medications Current Medications: Generic Name Dose Route Start Last Admin Trade Name Freq PRN Reason Stop Dose Admin Acetaminophen 650 mg 03/20/21 11:28 03/20/21 21:40 Acetaminophen 325 Mg Tab PO 650 mg Q4H PRN Administration Pain MILD(1-3)/Fever >100.5/HURD Ascorbic Acid 500 mg 03/20/21 22:00 03/23/21 09:06 Ascorbic Acid 500 Mg Tab PO 500 mg BID SHAAN Administration Cholecalciferol 1,000 unit 03/21/21 10:00 03/23/21 09:06 Cholecalciferol (Vit D3) 1000 Unit (25 Mcg) Tab PO 1,000 unit QDAY SHAAN Administration Dexamethasone 6 mg 03/21/21 12:00 03/22/21 12:33 Dexamethasone 4 Mg/Ml Vial IV 03/30/21 12:01 6 mg Q24H SHAAN Administration Guaifenesin 10 ml 03/22/21 05:06 03/22/21 12:33 Guaifenesin Dm 200/20 Mg Oral Liqd 10 Ml PO 10 ml Q4H PRN Administration Cough Hydromorphone HCl 0.25 mg 03/20/21 11:28 Hydromorphone 1 Mg/1 Ml Inj IV Q4H PRN Pain, Moderate (4-6) Hydromorphone HCl 0.5 mg 03/20/21 11:28 Hydromorphone 1 Mg/1 Ml Inj IV Q12H PRN Pain , Severe (7-10) REMDESIVIR 100 mg/ Sodium 250 mls @ 500 mls/hr 03/21/21 21:00 03/22/21 21:52 Chloride IV 03/24/21 21:29 500 mls/hr Q24HR@2100 SHAAN Administration Ondansetron HCl 4 mg 03/20/21 11:28 03/21/21 23:37 Ondansetron 4 Mg/2 Ml Inj IV 4 mg Q8H PRN Administration Nausea And Vomiting Oxycodone/Acetaminophen 1 tab 03/20/21 11:28 Oxycodone /Acetaminophen 5-325mg Tab PO Q12H PRN Pain, Moderate (4-6) Sodium Chloride 10 ml 03/20/21 22:00 03/23/21 09:06 Sodium Chloride 0.9% 10 Ml Flush Syringe IV 10 ml BID SHAAN Administration Sodium Chloride 10 ml 03/20/21 11:28 Sodium Chloride 0.9% 10 Ml Flush Syringe IV PRN PRN LINE FLUSH Sodium Chloride 50 ml 03/20/21 20:30 03/22/21 23:03 Sodium Chloride 0.9% 50 Ml Ivpb IV 03/24/21 21:01 50 ml Q24HR@2100 SHAAN Administration Zinc Sulfate 220 mg 03/20/21 22:00 03/23/21 09:06 Zinc Sulfate 220 Mg Cap PO 220 mg BID SHAAN Administration Nutrition/Malnutrition Assess - Dietary Evaluation Nutrition/Malnutrition Findings: Nutrition Notes Start: 03/21/21 11:04 Freq: Status: Active Protocol: Document 03/21/21 11:04 JUVE (Rec: 03/21/21 11:13 JUVE [id number]) Nutrition Notes Need for Assessment generated from: appeals specialist,MST Initial or Follow up Assessment Current Diagnosis Sepsis,Respiratory Failure Other Pertinent Diagnosis COVID(+), pneu Current Diet Regular Labs/Tests Reviewed Pertinent Medications Gayleu medrol Height 5 ft 10 in Weight 79.379 kg [place] Body Weight (kg) 75.45 BMI 25.1 Weight change and time frame Pt states UBW aroung 245#. Unsure of accuracy of wt in chart or pt report. He does state he has lost 10# in a week. 4% wt loss in 1 week. Weight Status Overweight Subjective/Other Information RN screen for MST. Pt reports not eating well for 1 week. Pt open to lower sugar ONS. Burn Absent Trauma Absent GI Symptoms Nausea Current % PO Negligible Minimum of two criteria Yes Interpretation of Weight Loss (severe) >2% in 1 week #1 Nutrition Diagnosis Malnutrition Etiology COVID-19 As Evidenced by Signs and Symptoms pt eating <50% of EER in 1 week, >2% wt loss in 1 week Is patient on ventilator? No Is Patient Ambulatory and/or Out of Bed No REE-([facility]-confined to bed) 1447.116 Calculation Used for Recommendations [facility] Additional Notes Protein: 1.2-1.5g/kg (95-119g) Fluid: 1 ml/kcal Nutrition Intervention Change Diet Order: Continue Add Supplement/Snack (indicate name/kcal Ensure HP BID /protein ) Provides kCal: 320 Provides Protein (gm) 32 Goal #1 Meet at least 75% of energy and protein needs via PO and ONS Goal #2 weight maintenance Anticipated Discharge Needs: Regular Follow-Up By: 03/24/21 Additional Comments FU for intakes and ONS tolerance
[2021-03-23] MEDS: dexAMETHasone 4 MG/ML VIAL IV SCH (11:06)
[2021-03-23] MEDS: ONDANSETRON 4 MG/2 ML INJ IV PRN (11:41)
--- NOTE | 2021-03-23 12:36 | Progress Note ---
Assessment and Plan Impression: Acute hypoxic respiratory failure COVID-19 pneumonia Severe cough Sepsis Recommendation Appreciated ID input Continue with her current therapy with steroids, remdesivir and Actemra. Continue with supplemental oxygen, monitor oxygen saturation wean as tolerated. Prognosis is guarded. We will continue to follow Subjective Date of service: 03/23/21 Principal diagnosis: COVID-19 Interval history: Patient feeling much better today now on nasal cannula. Cough is improved breathing has improved Objective - Exam Narrative Exam: VITAL SIGNS: Reviewed. GENERAL: The patient appears normally developed, resting comfortably in room in the room vital signs as documented. HEAD: No signs of head trauma. EYES: Pupils are equal. Extraocular motions intact. EARS: Hearing grossly intact. MOUTH: Oropharynx is normal. NECK: No adenopathy, no JVD. CHEST: Chest with diminished breath sounds bilaterally. No wheezes, rales, or rhonchi. CARDIAC: Regular rate and rhythm. S1 and S2, without murmurs, gallops, or rubs. VASCULAR: No Edema. Peripheral pulses normal and equal in all extremities. ABDOMEN: Soft, non tender and non distended. No rebound or guarding, and no masses palpated. Bowel Sounds normal. MUSCULOSKELETAL: Good range of motion of all major joints. Extremities without clubbing, cyanosis or edema. NEUROLOGIC EXAM: Alert and oriented x 3 No focal sensory or strength deficits. Speech normal. Follows commands. PSYCHIATRIC: Mood normal. SKIN: detail exam as documented in skin assessment Vital Signs - 12hr 03/23/21 03/23/21 03/23/21 00:40 00:45 00:50 Temperature 99.2 F Pulse Rate 55 L 80 Pulse Rate [ Apical] Respiratory 18 22 Rate Blood Pressure 110/60 110/60 O2 Sat by Pulse 100 99 Oximetry 03/23/21 03/23/21 03/23/21 01:00 01:10 01:20 Temperature Pulse Rate 58 L 62 56 L Pulse Rate [ Apical] Respiratory 20 21 19 Rate Blood Pressure 110/60 110/60 110/60 O2 Sat by Pulse 100 100 100 Oximetry 03/23/21 03/23/21 03/23/21 01:30 01:40 01:50 Temperature Pulse Rate 62 65 69 Pulse Rate [ Apical] Respiratory 19 21 21 Rate Blood Pressure 110/60 110/60 110/60 O2 Sat by Pulse 100 100 100 Oximetry 03/23/21 03/23/2103/23/21 02:00 02:10 02:20 Temperature Pulse Rate 57 L 62 54 L Pulse Rate [ Apical] Respiratory 26 H 22 23 Rate Blood Pressure 110/60 110/60 110/60 O2 Sat by Pulse 100 100 100 Oximetry 03/23/21 03/23/21 03/23/21 02:30 02:40 02:50 Temperature Pulse Rate 55 L 60 60 Pulse Rate [ Apical] Respiratory 22 22 20 Rate Blood Pressure 110/60 110/60 110/60 O2 Sat by Pulse 100 100 99 Oximetry 03/23/21 03/23/21 03/23/21 03:00 03:10 03:20 Temperature 98.8 F Pulse Rate 56 L 58 L 71 Pulse Rate [ Apical] Respiratory 22 23 20 Rate Blood Pressure 110/60 110/60 110/60 O2 Sat by Pulse 100 100 100 Oximetry 03/23/21 03/23/21 03/23/21 03:30 03:40 03:50 Temperature Pulse Rate 58 L 58 L 96 H Pulse Rate [ Apical] Respiratory 20 21 24 Rate Blood Pressure 110/60 110/60 110/60 O2 Sat by Pulse 100 100 100 Oximetry 03/23/21 03/23/21 03/23/21 04:00 04:10 04:20 Temperature Pulse Rate 72 62 57 L Pulse Rate [ Apical] Respiratory 24 21 22 Rate Blood Pressure 110/60 110/60 110/60 O2 Sat by Pulse 100 97 98 Oximetry 03/23/21 03/23/21 03/23/21 04:30 04:40 04:50 Temperature Pulse Rate 57 L 75 59 L Pulse Rate [ Apical] Respiratory 29 H 16 22 Rate Blood Pressure 110/60 110/60 110/60 O2 Sat by Pulse 98 98 100 Oximetry 03/23/21 03/23/21 03/23/21 05:00 05:10 05:20 Temperature Pulse Rate 59 L 58 L 59 L Pulse Rate [ Apical] Respiratory 22 23 23 Rate Blood Pressure 110/60 110/60 110/60 O2 Sat by Pulse 99 100 100 Oximetry 03/23/21 03/23/21 03/23/21 05:30 05:40 05:50 Temperature Pulse Rate 57 L 63 60 Pulse Rate [ Apical] Respiratory 22 23 21 Rate Blood Pressure 110/60 110/60 110/60 O2 Sat by Pulse 98 100 100 Oximetry 07/03/23/21 03/23/21 06:00 06:10 06:20 Temperature Pulse Rate 59 L 59 L 74 Pulse Rate [ Apical] Respiratory 20 23 24 Rate Blood Pressure 110/60 110/60 110/60 O2 Sat by Pulse 99 100 100 Oximetry 03/23/21 03/23/21 03/23/21 06:30 06:40 06:50 Temperature Pulse Rate 78 72 80 Pulse Rate [ Apical] Respiratory 21 21 23 Rate Blood Pressure 110/60 110/60 110/60 O2 Sat by Pulse 98 100 94 Oximetry 03/23/21 03/23/21 03/23/21 07:00 07:10 07:20 Temperature Pulse Rate 69 72 59 L Pulse Rate [ Apical] Respiratory 19 21 19 Rate Blood Pressure 110/60 110/60 110/60 O2 Sat by Pulse 92 92 93 Oximetry 03/23/21 03/23/21 03/23/21 07:30 07:40 08:00 Temperature Pulse Rate 61 95 H Pulse Rate [ 80 Apical] Respiratory 19 21 22 Rate Blood Pressure 110/60 110/60 O2 Sat by Pulse 93 95 96 Oximetry 03/23/21 03/23/21 09:28 12:05 Temperature 99.2 F Pulse Rate Pulse Rate [ Apical] Respiratory 26 H Rate Blood Pressure O2 Sat by Pulse 100 Oximetry Constitutional: no acute distress, alert, appears uncomfortable, other (Obese) Eyes: non-icteric ENT: oropharynx moist Neck: supple Ascultation: Bilateral: clear, rhonchi Percussion: Bilateral: not dull Tactile fremitus: Bilateral: normal Cardiovascular: other (Tachycardia noted) Gastrointestinal: normoactive bowel sounds, soft, non-tender, other (Obese) Neurologic: normal mental status Psychiatric: mood appropriate CBC and BMP: 03/20/21 10:31 03/23/21 04:39 ABG, PT/INR, D-dimer: PT/INR, D-dimer D-Dimer 372.51 ng/mlDDU (0-234) H 03/22/21 08:15 Abnormal lab findings: Abnormal Labs 03/20/21 03/20/21 03/20/21 10:31 10:35 18:00 WBC 12.0 H RDW 12.3 L Lymph % (Auto) 4.6 L Lymph # (Auto) 0.6 L Seg Neutrophils % 90.0 H Seg Neutrophils # 10.8 H D-Dimer 372.51 H BUN Creatinine Glucose Calcium Ferritin AST Lactate Dehydrogenase C-Reactive Protein Albumin Coronavirus (PCR) Positive A 03/20/21 03/20/21 03/20/21 18:00 18:00 18:00 WBC RDW Lymph % (Auto) Lymph # (Auto) Seg Neutrophils % Seg Neutrophils # D-Dimer BUN Creatinine Glucose 134 H Calcium Ferritin 615.1 H AST Lactate Dehydrogenase 503 H C-Reactive Protein 14.80 H Albumin 3.2 L Coronavirus (PCR) 03/21/21 03/22/21 03/22/21 06:30 08:15 08:15 WBC RDW Lymph % (Auto) Lymph # (Auto) Seg Neutrophils % Seg Neutrophils # D-Dimer 372.51 H BUN 27 H Creatinine 0.7 L Glucose 122 H 107 H Calcium Ferritin AST Lactate Dehydrogenase C-Reactive Protein Albumin 3.5 L 3.6 L Coronavirus (PCR) 03/22/21 03/22/21 03/23/21 08:15 08:15 04:39 WBC RDW Lymph % (Auto) Lymph # (Auto) Seg Neutrophils % Seg Neutrophils # D-Dimer BUN 23 H Creatinine Glucose 106 H Calcium 8.3 L Ferritin 566.5 H AST 58 H Lactate Dehydrogenase 565 H C-Reactive Protein 5.20 H Albumin 3.4 L Coronavirus (PCR)
--- NOTE | 2021-03-23 14:30 | Electrocardiograph Report ---
[facility] Test Date: 2021-03-22 Test Time: 11:52:58 Pat Name: SARAH BELLA Department: Room: A362 Gender: M Schedule Checker: COLLEEN : 2000 Requested By: JOHNNIE KRAMER Order Number: [id number] Reading MD: Ashley Tejada Measurements Intervals [place] Rate: 66 P: 21 [place]: 132 QRS: 10 QRSD: 92 T: 3 QT: 410 QTc: 429 Interpretive Statements Sinus rhythm Nonspecific ST and T wave abnormalities Compared to ECG 03/20/2021 09:21:59 Sinus rate has slowed Electronically Signed On 03-23-2021 14:30:14 EDT by Ashley Tejada
[2021-03-23] MEDS: SODIUM CHLORIDE 0.9% 50 ML IVPB IV SCH (21:02)
[2021-03-23] MEDS: REMDESIVIR 100 MG in SODIUM CHLORIDE 0.9% 250ML 250 ML IV SCH (21:02)
[2021-03-23] MEDS: guaiFENesin DM 200/20 MG ORAL LIQD 10 ML PO PRN (21:03)
[2021-03-23 23:09] VITALS: BP 125/76
[2021-03-24 07:57] LABS: Hemoglobin 13.8 gm/dl (11.8-15.2); Mean Corpuscular HGB Conc 35 % (32-34); Mean Corpuscular Volume 91 fl (84-94); Platelet Count 346 K/mm3 (140-440); Red Blood Count 4.39 M/mm3 (3.65-5.03); Red Cell Distribution Width 11.9 % (13.2-15.2)
[2021-03-24 08:22] LABS: Alanine Aminotransferase 55 units/L (7-56); Albumin 3.5 g/dL (3.9-5); Blood Urea Nitrogen 22 mg/dL (9-20); Calcium 8.8 mg/dL (8.4-10.2); Hemolysis Index 8
[2021-03-24 08:26] LABS: BUN/Creatinine Ratio 31
--- NOTE | 2021-03-24 11:11 | Progress Note ---
Assessment and Plan 20 y/o male with acute respiratory failure secondary to COVID 19 03/24/21: Defer to ID but no objection to discharge to home as his oxygen requirement has improved dramatically. Should continue to prone at home. Will need 10 days total of steroid. No lasix therapy needed today. 1. Agree with steroids and remdesivir and it appears patient is candidate for Remdesivir based on ID note and oxygen requirements 2. Ordered proning 3. Agree with lasix but would assess for need on daily basis 4. Wean FiO2 as tolerated for sats >88% Guarded prognosis, will continue to follow along with you. Subjective Date of service: 03/24/21 Principal diagnosis: COVID-19 Interval history: Patient weaned himself to room air based on nursing notes as HFNC was bothering him. Last documented sat at time of this note was 100. Objective Vital Signs - 12hr 03/24/21 00:05 Pulse Rate [ 80 Apical] Respiratory 26 H Rate O2 Sat by Pulse 100 Oximetry Constitutional: no acute distress, alert, appears uncomfortable, other (Obese) Eyes: non-icteric ENT: oropharynx moist Neck: supple Ascultation: Bilateral: clear, rhonchi Percussion: Bilateral: not dull Tactile fremitus: Bilateral: normal Cardiovascular: other (Tachycardia noted) Gastrointestinal: normoactive bowel sounds, soft, non-tender, other (Obese) Neurologic: normal mental status Psychiatric: mood appropriate CBC and BMP: 03/24/21 07:37 03/24/21 07:37 ABG, PT/INR, D-dimer: PT/INR, D-dimer D-Dimer 782.36 ng/mlDDU (0-234) H 03/24/21 07:37 Abnormal lab findings: Abnormal Labs 03/20/21 03/20/21 03/20/21 10:31 10:35 18:00 WBC 12.0 H MCHC RDW 12.3 L Lymph % (Auto) 4.6 L Lymph # (Auto) 0.6 L Seg Neutrophils % 90.0 H Seg Neutrophils # 10.8 H D-Dimer 372.51 H Potassium BUN Creatinine Glucose Calcium Ferritin AST Lactate Dehydrogenase C-Reactive Protein Albumin Coronavirus (PCR) Positive A 03/20/21 03/20/21 03/20/21 18:00 18:00 18:00 WBC MCHC RDW Lymph % (Auto) Lymph # (Auto) Seg Neutrophils % Seg Neutrophils # D-Dimer Potassium BUN Creatinine Glucose 134 H Calcium Ferritin 615.1 H AST Lactate Dehydrogenase 503 H C-Reactive Protein 14.80 H Albumin 3.2 L Coronavirus (PCR) 03/21/21 03/22/21 03/22/21 06:30 08:15 08:15 WBC MCHC RDW Lymph % (Auto) Lymph # (Auto) Seg Neutrophils % Seg Neutrophils # D-Dimer 372.51 H Potassium BUN 27 H Creatinine 0.7 L Glucose 122 H 107 H Calcium Ferritin AST Lactate Dehydrogenase C-Reactive Protein Albumin 3.5 L 3.6 L Coronavirus (PCR) 03/22/21 03/22/21 03/23/21 08:15 08:15 04:39 WBC MCHC RDW Lymph % (Auto) Lymph # (Auto) Seg Neutrophils % Seg Neutrophils # D-Dimer Potassium BUN 23 H Creatinine Glucose 106 H Calcium 8.3 L Ferritin 566.5 H AST 58 H Lactate Dehydrogenase 565 H C-Reactive Protein 5.20 H Albumin 3.4 L Coronavirus (PCR) 03/24/21 03/24/21 03/24/21 07:37 07:37 07:37 WBC MCHC RDW Lymph % (Auto) Lymph # (Auto) Seg Neutrophils % Seg Neutrophils # D-Dimer 782.36 H Potassium 3.4 L BUN 22 H Creatinine 0.7 L Glucose Calcium Ferritin 605.9 H AST 44 H Lactate Dehydrogenase 437 H C-Reactive Protein Albumin 3.5 L Coronavirus (PCR) 03/24/21 07:37 WBC MCHC 35 H RDW 11.9 L Lymph % (Auto) Lymph # (Auto) Seg Neutrophils % Seg Neutrophils # D-Dimer Potassium BUN Creatinine Glucose Calcium Ferritin AST Lactate Dehydrogenase C-Reactive Protein Albumin Coronavirus (PCR)
--- NOTE | 2021-03-24 11:43 | Discharge Summary ---
Providers - Providers Date of Admission: 03/20/21 11:28 Attending physician: JOHNNIE KRAMER MD 03/20/21 14:08 Consult to Physician [CONS] Routine Comment: Consulting Provider: STEVEN CAREY Physician Instructions: Reason For Exam: COVID 19 03/21/21 08:15 Consult to Physician [CONS] Routine Comment: Consulting Provider: CHRISTOPHE RUGGIERO Physician Instructions: Reason For Exam: Respiratory failure secondary to covid Primary care physician: EXTERIOR DESIGNER Hospitalization Reason for admission: SHORTNESS OF BREATH Condition: Stable Hospital course: 20 YO Male with Coronavirus Infection diagnosed 1 week ago, who failed outpatient therapy, presents to ED for evaluation. Patient reports "my breathing is worse". Patient states that he has experienced body aches, fever, dry cough, dyspnea on exertion, dyspnea at rest, shortness of breath, loss of sense of smell, loss of sense of taste. Patient represents to ED for evaluation of the aforementioned symptoms. EMS was notified and upon arrival the patient was found to be in respiratory distress and was placed on supplemental oxygen and transported to [facility] for further care and evaluation of the aforementioned symptoms. The patient was seen and evaluated in the emergency department. All lab and imaging studies reviewed. The patient was found to have a temperature of 103.3 F, a respiratory rate in the 40s, a pulse oximetry of 87% on room air at rest which is consistent with acute hypoxemic respiratory failure. Patient underwent chest x-ray and was found to have bilateral pneumonia, as well as sepsis suspected secondary to coronavirus infection. Patient admitted to medical floor and initiated on sepsis protocol as well as coronavirus protocol. Patient also placed on high flow supplemental oxygen with mild improvement in symptoms. Patient is unable to speak in complete sentences, is using accessory muscles to breathe, tripoding. Patient uses head gestures to deny chills, chest pain, palpitation, skin rash, unilateral leg swelling, calf pain, prolonged travel/immobility, individual/family history of DVT/PE/bleeding/blood clotting disorders. No prior admission for review. No medication listed at time of admission for reconciliation. CXR: Patchy Infiltrate 03/21: Continue supportive care, continues on high flow oxygen, will obtain Pulmonary consult. PRONE position as tolerated. Discontinue abx secondary to low Procalciton, may do trial of lasix and evaluate. 03/22: Patient remains on high flow still hypoxic. Is currently on dexamethasone in addition to remdesivir. Continue current management we will give additional dose of Lasix today. Continue to encourage proning Zofran as needed I have changed Lovenox to full dose due to persistent hypoxia while we will continue to monitor. 03/23: While patient showed some remarkable improvement following Tocilizumab x 1 initial CRP 15, I noticed that his oxygen saturation over time has decreased down to 92% on discussion with infectious disease doctor I believe the patient will benefit from an additional 1 day stay in the hospital. Have placed him on nasal cannula at this time and he can be transferred up to the third floor. We will continue Zofran for nausea continue to encourage proning position. He understands his clinical condition and the sudden change that may occur with Covid patient. In a.m. we will repeat a home O2 evaluation and if he continues to show improvement of oxygen he can be discharged 03/24: Patient continues to show remarkable improvement. We will have a home O2 reevaluation today. Patient had remarkable recovery. He understands the importance of continuing isolation for a total of 14 days, weight loss and so on. (1) Sepsis Current Visit: Yes Status: Acute Qualifiers: Acute respiratory failure type: with hypoxia Plan to address problem: Sepsis protocol: Chest x-ray, CBC, CMP, serial lactic acid level, IV antibiotic therapy, IV fluid resuscitation therapy, maintain mean arterial pressure greater than or equal 65, (2) Acute respiratory failure with hypoxia Current Visit: Yes Status: Acute Plan to address problem: Chest x-ray, supplemental oxygen, pulse oximetry, high flow supplemental oxygen. Will consider noninvasive positive pressure ventilation as clinically indicated. (3) COVID-19 Current Visit: Yes Status: Acute Plan to address problem: Coronavirus protocol: IV steroid therapy, IV antibiotic therapy, high flow supplemental oxygen, pulse oximetry, nebulizer therapy, vitamin C therapy, vitamin D therapy, zinc therapy, prophylactic anticoagulation (4) Pneumonia Current Visit: Yes Status: Acute Plan to address problem: Pneumonia protocol: Chest x-ray, CBC, supplemental oxygen, pulse oximetry, nebulizer therapy, IV antibiotic therapy, blood culture. Disposition: - TO HOME OR SELFCARE Final Discharge Diagnosis (Prints w/discharge instructions): COVID19 Time spent for discharge: 35 MINS Core Measure Documentation - Palliative Care Palliative Care/ Comfort Measures: Not Applicable - Core Measures Any of the following diagnoses?: none Exam - Physical Exam Narrative exam: VITAL SIGNS: Reviewed. GENERAL: The patient appears normally developed, resting comfortably in room in the room vital signs as documented. HEAD: No signs of head trauma. EYES: Pupils are equal. Extraocular motions intact. EARS: Hearing grossly intact. MOUTH: Oropharynx is normal. NECK: No adenopathy, no JVD. CHEST: Chest with diminished breath sounds bilaterally. No wheezes, rales, or rhonchi. CARDIAC: Regular rate and rhythm. S1 and S2, without murmurs, gallops, or rubs. VASCULAR: No Edema. Peripheral pulses normal and equal in all extremities. ABDOMEN: Soft, non tender and non distended. No rebound or guarding, and no masses palpated. Bowel Sounds normal. MUSCULOSKELETAL: Good range of motion of all major joints. Extremities without clubbing, cyanosis or edema. NEUROLOGIC EXAM: Alert and oriented x 3 No focal sensory or strength deficits. Speech normal. Follows commands. PSYCHIATRIC: Mood normal. SKIN: detail exam as documented in skin assessment - Constitutional Vitals: Temp Pulse Resp BP Pulse Ox 98.1 F 80 26 H 125/76 100 03/23/21 22:55 03/24/21 00:05 03/24/21 00:05 03/23/21 22:55 03/24/21 00:05 Plan Activity: advance as tolerated, fall precautions Diet: low fat (WEIGHT LOSS RECOMMEDED) Special Instructions: record daily weights, record daily BP diary Follow up with: PRIMARY CARE, [Primary Care Provider] - 3-5 Days CHRISTOPHE RUGGIERO MD [Staff Physician] - 7 Days Prescriptions: dexAMETHasone [Dexamethasone] 6 mg PO DAILY #5 tablet Ascorbic Acid [Vitamin C] 500 mg PO BID #30 tablet Cholecalciferol Vit D3 [Vitamin D3 1,000 UNIT TAB] 1,000 unit PO QDAY #30 tablet Zinc Sulfate 220 mg PO BID #30 capsule
[2021-03-24] MEDS: ASCORBIC ACID 500 MG TAB PO SCH (12:16)
[2021-03-24] MEDS: ZINC SULFATE 220 MG CAP PO SCH (12:16)
[2021-03-24] MEDS: CHOLECALCIFEROL (VIT D3) 1000 UNIT (25 mcg) TAB PO SCH (12:16)
--- NOTE | 2021-03-24 14:22 | Progress Note ---
Assessment and Plan Cultures: Blood culture no growth SARS CoV2 PCR positive Assessment: 20-year-old male who tested positive for COVID-19 a week before admission, admitted on 03/20/2021 secondary to body aches, fever, dry cough, dyspnea on exertion and shortness of breath associated with loss of smell and taste for 8 days: #Severe sepsis: Present on admission with high fever, tachycardia, hypoxia, secondary to COVID-19 infection. #Severe COVID pneumonia: Chest x-ray with bilateral patchy infiltrates. Patient unvaccinated. Inflammatory markers elevated on admission. #Acute hypoxemic respiratory failure: improved. Recommendations: -much improved status post Tocilizumab -also received remdesivir -Weaned off oxygen, discharge on p.o. Decadron to complete 10-day course -Agree with discharge, if any worsening shortness of breath, advised patient to return to the hospital Monica Moore MD, FACP [facility] O: [phone] F: [phone] Subjective Date of service: 03/24/21 Principal diagnosis: COVID-19 Interval history: No fever. Weaned off oxygen. Denies any complaints. Objective - Exam Narrative Exam: Physical Exam: Constitutional: Alert, cooperative. No acute distress Head, Ears, Nose: Normocephalic, atraumatic. External ears, nose normal Eyes: Conjunctivae/corneas clear. No icterus. No ptosis. Neck: Supple, no meningeal signs Cardiovascular: S1, S2 + Respiratory: Good air entry, clear to auscultation bilaterally GI: Soft, non-tender; bowel sounds normal. No peritoneal signs Musculoskeletal: No pedal edema, no cyanosis. Skin: No rash or abscess Hem/Lymphatic: No palpable cervical or supraclavicular nodes. No lymphangitis Psych: Mood ok. Affect normal Neurological: Awake, alert, oriented. No gross abnormality - Constitutional Vitals: Vital Signs Temp Pulse Resp BP Pulse Ox 98.1 F 80 26 H 125/76 100 03/23/21 22:55 03/24/21 00:05 03/24/21 00:05 03/23/21 22:55 03/24/21 00:05 Temperature -Last 24 Hours Temperature 98.1 F Temperature 99.1 F - Labs CBC & Chem 7: 03/24/21 07:37 03/24/21 07:37 Labs: Abnormal lab results 03/24/21 03/24/21 03/24/21 Range/Units 07:37 07:37 07:37 MCHC (32-34) % RDW (13.2-15.2) % D-Dimer 782.36 H (0-234) ng/mlDDU Potassium 3.4 L (3.6-5.0) mmol/L BUN 22 H (9-20) mg/dL Creatinine 0.7 L (0.8-1.3) mg/dL Ferritin 605.9 H (30.0-300.0) ng/mL AST 44 H (5-40) units/L Lactate Dehydrogenase 437 H (91-180) units/L Albumin 3.5 L (3.9-5) g/dL 03/24/21 Range/Units 07:37 MCHC 35 H (32-34) % RDW 11.9 L (13.2-15.2) % D-Dimer (0-234) ng/mlDDU Potassium (3.6-5.0) mmol/L BUN (9-20) mg/dL Creatinine (0.8-1.3) mg/dL Ferritin (30.0-300.0) ng/mL AST (5-40) units/L Lactate Dehydrogenase (91-180) units/L Albumin (3.9-5) g/dL
== END 2021-03-24 18:00 | disposition home or self-care (01) | DRG 871 ==
LOC: ED 08:36 → 3A 11:28 → IMCU 03-22 16:18 → 3A 03-23 11:26
PROVIDERS: ADMIT Internal Medicine; ATTEND Internal Medicine
PROC: XW033E5 Introduction of Remdesivir Anti-infective into Peripheral Vein, Percutaneous Approach, New Technology Group 5 (ICD-10-PCS; principal; 2021-03-20)
PROC: 5A0935A Assistance with Respiratory Ventilation, Less than 24 Consecutive Hours, High Flow/Velocity Cannula (ICD-10-PCS; 2021-03-21)
PROC: 5A0935A Assistance with Respiratory Ventilation, Less than 24 Consecutive Hours, High Flow/Velocity Cannula (ICD-10-PCS; 2021-03-23)
DX: A41.89 Other specified sepsis (principal); U07.1 COVID-19; J12.82 Pneumonia due to coronavirus disease 2019; J96.01 Acute respiratory failure with hypoxia; R65.20 Severe sepsis without septic shock; Z88.8 Allergy status to other drugs, medicaments and biological substances; Z82.49 Family history of ischemic heart disease and other diseases of the circulatory system; Z79.899 Other long term (current) drug therapy
CPT/HCPCS: 36415; 71045; 80048; 80053; 82140; 82728; 82947; 83615; 84145; 85025; 85027; 85379; 86140; 87040; 93005; G0378; J0456; J0696; J1100; J1170; J2405; J2920; J3262; J7030; J7050; J8540; U0003